=== PATIENT | female | born 1940 | race Caucasian/White ===

== ENCOUNTER → 2016-10-20 | Outpatient (CLI) | payer MEDICARE ==
[~2016-10-20] MED LIST: ALPR-475 PO; ALPR1TAB6 PO; ARFO15VI INH; ASCO500C2 PO; ASPI-515 PO; ASPI-621 PO; BACL-19 PO; CALC1TAB62 PO; CHOL500015 PO; FLUT12AE INH; GABA-827 PO; ISOS5TAB2 PO; LEVA15HF2 INH; MAGN400O4 PO; METO25TA35 PO; MULT-185 PO; PANT40TA5 PO; PARO10TA3 PO; PARO40TA3 PO; POLY17PO5 PO; SENN1TAB67 PO; SIMV40TA3 PO; SULF1TAB24 PO; TIOT18CA INH
== END ==
LOC: STAR 09:33
PROVIDERS: ATTEND Internal Medicine Gastroenterology
DX: Z02.9 Encounter for administrative examinations, unspecified (principal)

== ENCOUNTER 2016-12-04 05:43 | Day surgery (SDC) | payer MEDICARE ==
[~2016-12-04] VITALS: Ht 149.9 cm; Wt 55.0 kg
[2016-12-04] MEDS ORDERED: LACTATED RINGERS 1,000 ML IV SCH (06:08)
[2016-12-04] MEDS ORDERED: MIDAZOLAM 1 MG/ML, 2ML ONE (07:40)
[2016-12-04] MEDS ORDERED: PIPERACILLIN/TAZO/PMX 3.375GM 50 ML ONE (07:41)
[2016-12-04] MEDS ORDERED: FENTANYL PF 100 MCG/2ML ONE (07:41)
[2016-12-04] MEDS ORDERED: ONDANSETRON 2MG/ML, 2ML IVPush PRN (08:30)
[2016-12-04] MEDS ORDERED: LABETALOL 5MG/ML, 20ML IV PRN (08:30)
[2016-12-04] MEDS ORDERED: HYDROcodone/APAP 7.5-325MG/15ML UDC PO PRN (08:30)
[2016-12-04] MEDS ORDERED: METOPROLOL 1 MG/ML, 5ML IV PRN (08:30)
[2016-12-04] MEDS ORDERED: ACETAMINOPHEN 325 MG TABLET PO PRN (08:30)
[2016-12-04] MEDS ORDERED: OXYcodone 5 MG/5 ML ORAL.SOL UDC PO PRN (08:30)
[2016-12-04] MEDS ORDERED: FENTANYL PF 100 MCG/2ML IV PRN (08:30)
[2016-12-04] MEDS ORDERED: OMNIPAQUE 350 MG/ML, 50 ML BOTTLE ONE (09:28)
[2016-12-04] MEDS ORDERED: PROPOFOL 10 MG/ML, 20ML ONE (15:53)
[2016-12-04] MEDS ORDERED: ROCURONIUM 10 MG/ML ONE (15:53)
== END 2016-12-04 10:45 | disposition home or self-care (01) ==
LOC: OUT 05:43
PROVIDERS: ATTEND Internal Medicine Gastroenterology
DX: K82.0 Obstruction of gallbladder (principal); Z96.89 Presence of other specified functional implants; I25.10 Atherosclerotic heart disease of native coronary artery without angina pectoris; I11.0 Hypertensive heart disease with heart failure; I50.32 Chronic diastolic (congestive) heart failure; J44.9 Chronic obstructive pulmonary disease, unspecified; J96.10 Chronic respiratory failure, unspecified whether with hypoxia or hypercapnia; K76.0 Fatty (change of) liver, not elsewhere classified; E78.5 Hyperlipidemia, unspecified; I25.2 Old myocardial infarction; F32.9 Major depressive disorder, single episode, unspecified; Z95.1 Presence of aortocoronary bypass graft; Z90.710 Acquired absence of both cervix and uterus; Z88.1 Allergy status to other antibiotic agents; Z90.49 Acquired absence of other specified parts of digestive tract
CPT/HCPCS: 43275; 43277; 74328; C1769; J2543; J2704; J3010; J7120; Q9967; J2250

== ENCOUNTER 2016-12-15 10:05 | Inpatient (IN) | payer MEDICARE ==
[~2016-12-15] VITALS: Ht 149.9 cm; Wt 68.9 kg
[2016-12-15] MEDS ORDERED: methylPREDNISolone SOD SUCC 125 MG/2 ML IVPush ONE (10:27)
[2016-12-15] MEDS ORDERED: PREGABALIN 25 MG CAPSULE PO ONE (10:30)
[2016-12-15 11:22] LABS: ASPARTATE AMINO TRANSFERASE 101 U/L (15-37); BLOOD UREA NITROGEN 16 mg/dL (7-18)
[2016-12-15 11:28] LABS: IS PT STATUS REG ER OR PRE ER? YES
[2016-12-15 12:12] LABS: PATH.CAST-FLAG NOT PRESENT; SPERM-FLAG NOT PRESENT; SRC-FLAG NOT PRESENT; XTAL-FLAG NOT PRESENT; YLC-FLAG NOT PRESENT
[2016-12-15] MEDS ORDERED: ONDANSETRON ODT 4 MG PO PRN (16:00)
[2016-12-15] MEDS ORDERED: ONDANSETRON 2MG/ML, 2ML IVPush PRN (16:00)
[2016-12-15 16:42] VITALS: BP 129/69
[2016-12-15] MEDS: SODIUM CHLORIDE 0.9% 1,000 ML IV SCH (18:32)
[2016-12-15] MEDS: HEPARIN 5,000 UNITS/ML, 1ML SQ SCH (18:33)
[2016-12-15] MEDS: BACLOFEN 10 MG TABLET PO SCH (20:28)
[2016-12-15] MEDS: GABAPENTIN 400 MG CAPSULE PO SCH (20:28)
[2016-12-15] MEDS ORDERED: PANTOPROZOLE 40MG TABLET PO SCH (21:00)
[2016-12-15] MEDS: ALPRazolam 1MG TABLET PO PRN (22:38)
[2016-12-15] MEDS ORDERED: IPRATROPIUM 0.5 MG/2.5 ML INHA ONE (22:59)
[2016-12-15] MEDS: IPRATROPIUM 0.5 MG/2.5 ML INHA HHN SCH (23:00)
[2016-12-16] MEDS: HEPARIN 5,000 UNITS/ML, 1ML SQ SCH ×3 (03:14→19:00)
[2016-12-16 04:14] VITALS: BP 108/71
[2016-12-16 05:19] LABS: ASPARTATE AMINO TRANSFERASE 83 U/L (15-37); BLOOD UREA NITROGEN 12 mg/dL (7-18)
[2016-12-16 06:54] VITALS: BP 118/73
[2016-12-16] MEDS ORDERED: IPRATROPIUM 0.5 MG/2.5 ML INHA ONE (07:03)
[2016-12-16] MEDS: IPRATROPIUM 0.5 MG/2.5 ML INHA HHN SCH (07:31)
[2016-12-16] MEDS: SODIUM CHLORIDE 0.9% 1,000 ML IV SCH ×2 (08:32→22:30)
[2016-12-16] MEDS: BACLOFEN 10 MG TABLET PO SCH ×2 (08:35→20:46)
[2016-12-16] MEDS: ASPIRIN 81 MG TABLET EC PO SCH (08:35)
[2016-12-16] MEDS: ASCORBIC ACID 500 MG TABLET PO SCH (08:36)
[2016-12-16] MEDS: PAROXETINE 20 MG TABLET PO SCH (08:36)
[2016-12-16] MEDS: GABAPENTIN 400 MG CAPSULE PO SCH ×2 (08:36→20:46)
[2016-12-16] MEDS: CHOLECALCIFEROL 1,000 UNIT TABLET PO SCH (08:36)
[2016-12-16] MEDS ORDERED: IPRATROPIUM 0.5 MG/2.5 ML INHA NPPB PRN (09:00)
[2016-12-16] MEDS ORDERED: LEVALBUTEROL INH SCH (09:00)
[2016-12-16] MEDS ORDERED: FLUTICASONE FUROATE 100MCG/INH INH SCH (09:00)
[2016-12-16] MEDS: PANTOPROZOLE 40MG TABLET PO SCH (09:03)
[2016-12-16] MEDS: AMPICILLIN/SULBACTAM 3 GM in SODIUM CHLORIDE 0.9% 100 ML IV SCH ×2 (14:25→20:20)
[2016-12-16 20:00] VITALS: BP 124/71
[2016-12-16] MEDS ORDERED: METOPROLOL TARTRATE 25 MG TABLET PO SCH (20:00)
[2016-12-16] MEDS: FLUTICASONE FUROATE 100MCG/INH INH SCH (20:46)
[2016-12-16] MEDS ORDERED: SIMVASTATIN 40 MG TABLET PO SCH (21:00)
[2016-12-16] MEDS ORDERED: SODIUM CHLORIDE 0.9%, 500ML IVBOLUS ONE (21:00)
[2016-12-16 21:57] VITALS: BP 127/77
[2016-12-16] MEDS: ALPRazolam 1MG TABLET PO PRN (23:35)
[2016-12-16 23:48] VITALS: BP 110/59
[2016-12-17 02:25] VITALS: BP 97/59
[2016-12-17] MEDS: HEPARIN 5,000 UNITS/ML, 1ML SQ SCH ×3 (02:42→19:15)
[2016-12-17] MEDS: AMPICILLIN/SULBACTAM 3 GM in SODIUM CHLORIDE 0.9% 100 ML IV SCH ×2 (02:43→09:05)
[2016-12-17 05:34] LABS: ASPARTATE AMINO TRANSFERASE 77 U/L (15-37); BLOOD UREA NITROGEN 8 mg/dL (7-18)
[2016-12-17] MEDS: METOPROLOL TARTRATE 25 MG TABLET PO SCH ×2 (05:59→18:00)
[2016-12-17 08:55] VITALS: BP 112/70
[2016-12-17] MEDS ORDERED: LEVALBUTEROL INH PRN (09:00)
[2016-12-17] MEDS: IPRATROPIUM 0.5 MG/2.5 ML INHA NPPB SCH (09:00)
[2016-12-17] MEDS: FLUTICASONE FUROATE 100MCG/INH INH SCH ×3 (09:05→20:37)
[2016-12-17] MEDS: ASPIRIN 81 MG TABLET EC PO SCH (09:06)
[2016-12-17] MEDS: ASCORBIC ACID 500 MG TABLET PO SCH (09:06)
[2016-12-17] MEDS: GABAPENTIN 400 MG CAPSULE PO SCH ×2 (09:06→20:36)
[2016-12-17] MEDS: CHOLECALCIFEROL 1,000 UNIT TABLET PO SCH (09:06)
[2016-12-17] MEDS: PAROXETINE 20 MG TABLET PO SCH (09:06)
[2016-12-17] MEDS: PANTOPROZOLE 40MG TABLET PO SCH (09:06)
[2016-12-17] MEDS: BACLOFEN 10 MG TABLET PO SCH ×2 (09:06→20:36)
[2016-12-17] MEDS: PSYLLIUM PACKET PO PRN (09:11)
[2016-12-17 13:24] VITALS: BP 119/77
[2016-12-17] MEDS: SODIUM CHLORIDE 0.9% 1,000 ML IV SCH ×2 (13:49→15:42)
[2016-12-17] MEDS ORDERED: VANCOMYCIN PER PHARMACY MC PRN (14:00)
[2016-12-17] MEDS: MEROPENEM 1 GM in SODIUM CHLORIDE 0.9% 100 ML IV SCH ×2 (14:27→22:30)
[2016-12-17] MEDS ORDERED: PHARMACOKINETIC CONSULTATION MC ONE (14:30)
[2016-12-17] MEDS ORDERED: MAGNESIUM SULFATE PMX 2GM/50ML 50 ML IV ONE (14:30)
[2016-12-17] MEDS ORDERED: PHARMACOKINETIC MONITORING MC PRN (14:30)
[2016-12-17] MEDS ORDERED: BISACODYL 10 MG SUPP PR PRN (15:00)
[2016-12-17] MEDS: VANCOMYCIN 1,100 MG in SODIUM CHLORIDE 0.9% 250 ML IV SCH (15:28)
[2016-12-17 17:58] VITALS: BP 99/58
[2016-12-17] MEDS: POTASSIUM CHLORIDE 20 MEQ TAB.ER.PRT PO SCH (18:00)
[2016-12-17 18:30] VITALS: BP 99/58
[2016-12-17] MEDS: CALCIUM CARBONATE 500 MG TAB.CHEW PO PRN (20:47)
[2016-12-18 00:52] VITALS: BP 104/60
[2016-12-18] MEDS: HEPARIN 5,000 UNITS/ML, 1ML SQ SCH ×3 (03:27→18:33)
[2016-12-18] MEDS: SODIUM CHLORIDE 0.9% 1,000 ML IV SCH ×3 (03:28→22:33)
[2016-12-18 05:22] LABS: BLOOD UREA NITROGEN 7 mg/dL (7-18)
[2016-12-18 05:33] LABS: ASPARTATE AMINO TRANSFERASE 77 U/L (15-37)
[2016-12-18] MEDS: MEROPENEM 1 GM in SODIUM CHLORIDE 0.9% 100 ML IV SCH ×3 (06:16→22:30)
[2016-12-18] MEDS: METOPROLOL TARTRATE 25 MG TABLET PO SCH ×2 (06:16→17:29)
[2016-12-18 07:47] VITALS: BP 112/71
[2016-12-18] MEDS: IPRATROPIUM 0.5 MG/2.5 ML INHA NPPB SCH (08:07)
[2016-12-18 08:21] LABS: HEPATITIS C VIRUS ANTIBODY Nonreactive (Nonreactive)
[2016-12-18] MEDS: FLUTICASONE FUROATE 100MCG/INH INH SCH ×2 (09:00→21:00)
[2016-12-18] MEDS: ASPIRIN 81 MG TABLET EC PO SCH (09:21)
[2016-12-18] MEDS: ASCORBIC ACID 500 MG TABLET PO SCH (09:21)
[2016-12-18] MEDS: MAGNESIUM OXIDE 400 MG TABLET PO SCH (09:21)
[2016-12-18] MEDS: BACLOFEN 10 MG TABLET PO SCH ×2 (09:21→22:03)
[2016-12-18] MEDS: PAROXETINE 20 MG TABLET PO SCH (09:21)
[2016-12-18] MEDS: PANTOPROZOLE 40MG TABLET PO SCH (09:21)
[2016-12-18] MEDS: GABAPENTIN 400 MG CAPSULE PO SCH ×2 (09:21→22:03)
[2016-12-18] MEDS: CHOLECALCIFEROL 1,000 UNIT TABLET PO SCH (09:21)
[2016-12-18] MEDS: POTASSIUM CHLORIDE 20 MEQ TAB.ER.PRT PO SCH ×2 (09:22→11:47)
[2016-12-18] MEDS: POLYETHYLENE GLYCOL 17 GM PACKET NG SCH (09:22)
[2016-12-18 14:38] VITALS: BP 112/68
[2016-12-18] MEDS: VANCOMYCIN 1,100 MG in SODIUM CHLORIDE 0.9% 250 ML IV SCH (15:26)
[2016-12-18] MEDS: POTASSIUM ACID PHOSPHATE 500 MG TABLET.SOL PO SCH ×2 (15:29→22:02)
[2016-12-18 17:30] VITALS: BP 111/69
[2016-12-18 19:32] VITALS: BP 120/74
[2016-12-19] MEDS: POTASSIUM ACID PHOSPHATE 500 MG TABLET.SOL PO SCH ×2 (02:17→07:27)
[2016-12-19 02:22] VITALS: BP 156/89
[2016-12-19] MEDS: HEPARIN 5,000 UNITS/ML, 1ML SQ SCH (03:00)
[2016-12-19] MEDS ORDERED: [UNRECOGNIZED DRUG - REMARK] MC PRN (04:00)
[2016-12-19 05:54] LABS: ASPARTATE AMINO TRANSFERASE 106 U/L (15-37); BLOOD UREA NITROGEN 8 mg/dL (7-18)
[2016-12-19] MEDS: METOPROLOL TARTRATE 25 MG TABLET PO SCH ×3 (06:00→18:33)
[2016-12-19] MEDS: MEROPENEM 1 GM in SODIUM CHLORIDE 0.9% 100 ML IV SCH ×3 (06:06→21:21)
[2016-12-19] MEDS: POLYETHYLENE GLYCOL 17 GM PACKET NG SCH (07:27)
[2016-12-19] MEDS: ASPIRIN 81 MG TABLET EC PO SCH (07:27)
[2016-12-19] MEDS: ASCORBIC ACID 500 MG TABLET PO SCH (07:28)
[2016-12-19] MEDS: GABAPENTIN 400 MG CAPSULE PO SCH ×2 (07:28→21:19)
[2016-12-19] MEDS: BACLOFEN 10 MG TABLET PO SCH ×2 (07:28→21:19)
[2016-12-19] MEDS: MAGNESIUM OXIDE 400 MG TABLET PO SCH (07:28)
[2016-12-19] MEDS: PAROXETINE 20 MG TABLET PO SCH (07:28)
[2016-12-19] MEDS: PANTOPROZOLE 40MG TABLET PO SCH (07:28)
[2016-12-19] MEDS: FLUTICASONE FUROATE 100MCG/INH INH SCH ×2 (07:29→21:00)
[2016-12-19] MEDS: CHOLECALCIFEROL 1,000 UNIT TABLET PO SCH (07:29)
[2016-12-19 07:36] VITALS: BP 107/69
[2016-12-19] MEDS: SODIUM CHLORIDE 0.9% 1,000 ML IV SCH ×2 (08:00→12:00)
[2016-12-19] MEDS: IPRATROPIUM 0.5 MG/2.5 ML INHA NPPB SCH (09:58)
[2016-12-19] MEDS ORDERED: MAGNESIUM SULFATE PMX 2GM/50ML 50 ML IV ONE (11:00)
[2016-12-19] MEDS ORDERED: SUCCINYLCHOLINE 20 MG/ML, 10ML ONE (12:32)
[2016-12-19] MEDS ORDERED: PROPOFOL 10 MG/ML, 20ML ONE (12:32)
[2016-12-19] MEDS ORDERED: ONDANSETRON 2MG/ML, 2ML ONE (12:32)
[2016-12-19] MEDS ORDERED: GLUCAGON 1 MG ONE (13:01)
[2016-12-19] MEDS ORDERED: FENTANYL PF 100 MCG/2ML IV PRN (14:00)
[2016-12-19] MEDS ORDERED: HYDROmorphone 1 MG/ML, 1ML IV PRN (14:00)
[2016-12-19] MEDS ORDERED: OXYcodone 5 MG/5 ML ORAL.SOL UDC PO PRN (14:00)
[2016-12-19] MEDS ORDERED: HALOPERIDOL 5 MG/ML IV ONE (14:00)
[2016-12-19 14:50] VITALS: BP 109/72
[2016-12-19] MEDS: VANCOMYCIN 1,100 MG in SODIUM CHLORIDE 0.9% 250 ML IV SCH (15:55)
[2016-12-19 18:45] VITALS: BP 100/65
[2016-12-19 23:44] VITALS: BP 109/69
[2016-12-20 03:43] VITALS: BP 113/72
[2016-12-20] MEDS: SODIUM CHLORIDE 0.9% 1,000 ML IV SCH ×3 (03:57→22:33)
[2016-12-20 05:35] LABS: BLOOD UREA NITROGEN 6 mg/dL (7-18)
[2016-12-20 05:39] LABS: ASPARTATE AMINO TRANSFERASE 125 U/L (15-37)
[2016-12-20] MEDS: METOPROLOL TARTRATE 25 MG TABLET PO SCH ×2 (06:00→17:53)
[2016-12-20] MEDS: MEROPENEM 1 GM in SODIUM CHLORIDE 0.9% 100 ML IV SCH ×3 (06:27→22:30)
[2016-12-20] MEDS: HEPARIN 5,000 UNITS/ML, 1ML SQ SCH ×3 (06:27→22:31)
[2016-12-20 07:57] VITALS: BP 115/70
[2016-12-20] MEDS: GABAPENTIN 400 MG CAPSULE PO SCH ×3 (09:00→20:33)
[2016-12-20] MEDS: BACLOFEN 10 MG TABLET PO SCH ×2 (09:00→20:33)
[2016-12-20] MEDS: ASPIRIN 81 MG TABLET EC PO SCH (09:00)
[2016-12-20] MEDS: PAROXETINE 20 MG TABLET PO SCH ×2 (09:00→13:33)
[2016-12-20] MEDS: CHOLECALCIFEROL 1,000 UNIT TABLET PO SCH (09:00)
[2016-12-20] MEDS: FLUTICASONE FUROATE 100MCG/INH INH SCH ×2 (09:00→21:00)
[2016-12-20] MEDS: PANTOPROZOLE 40MG TABLET PO SCH (09:00)
[2016-12-20] MEDS: ASCORBIC ACID 500 MG TABLET PO SCH (09:00)
[2016-12-20] MEDS: MAGNESIUM OXIDE 400 MG TABLET PO SCH (09:00)
[2016-12-20] MEDS: IPRATROPIUM 0.5 MG/2.5 ML INHA NPPB SCH (09:00)
[2016-12-20] MEDS: POLYETHYLENE GLYCOL 17 GM PACKET NG SCH (09:00)
[2016-12-20 12:00] VITALS: BP 111/73
[2016-12-20] MEDS: VANCOMYCIN 1,100 MG in SODIUM CHLORIDE 0.9% 250 ML IV SCH (15:00)
[2016-12-20 16:45] VITALS: BP 126/79
[2016-12-20 18:57] VITALS: BP 129/76
[2016-12-21 00:39] VITALS: BP 109/71
[2016-12-21 05:38] LABS: ASPARTATE AMINO TRANSFERASE 142 U/L (15-37); BLOOD UREA NITROGEN 5 mg/dL (7-18)
[2016-12-21] MEDS: METOPROLOL TARTRATE 25 MG TABLET PO SCH ×2 (06:28→18:37)
[2016-12-21] MEDS: HEPARIN 5,000 UNITS/ML, 1ML SQ SCH ×3 (06:28→22:18)
[2016-12-21] MEDS: MEROPENEM 1 GM in SODIUM CHLORIDE 0.9% 100 ML IV SCH ×3 (06:28→22:17)
[2016-12-21] MEDS: SODIUM CHLORIDE 0.9% 1,000 ML IV SCH ×3 (06:30→22:22)
[2016-12-21 07:37] VITALS: BP 120/75
[2016-12-21] MEDS: FLUTICASONE FUROATE 100MCG/INH INH SCH ×2 (08:35→22:18)
[2016-12-21] MEDS: ASPIRIN 81 MG TABLET EC PO SCH (08:36)
[2016-12-21] MEDS: MAGNESIUM OXIDE 400 MG TABLET PO SCH (08:36)
[2016-12-21] MEDS: ASCORBIC ACID 500 MG TABLET PO SCH (08:36)
[2016-12-21] MEDS: PAROXETINE 20 MG TABLET PO SCH (08:36)
[2016-12-21] MEDS: BACLOFEN 10 MG TABLET PO SCH ×2 (08:36→22:18)
[2016-12-21] MEDS: CHOLECALCIFEROL 1,000 UNIT TABLET PO SCH (08:36)
[2016-12-21] MEDS: POLYETHYLENE GLYCOL 17 GM PACKET NG SCH (08:36)
[2016-12-21] MEDS: PANTOPROZOLE 40MG TABLET PO SCH (08:36)
[2016-12-21] MEDS: GABAPENTIN 400 MG CAPSULE PO SCH ×2 (08:36→22:18)
[2016-12-21] MEDS: CALCIUM CARBONATE 500 MG TAB.CHEW PO PRN (10:15)
[2016-12-21 12:20] VITALS: BP 121/81
[2016-12-21] MEDS ORDERED: OMNIPAQUE 350 MG/ML, 100ML BOTTLE ONE (13:28)
[2016-12-21 19:47] VITALS: BP 126/72
[2016-12-22 02:45] VITALS: BP 142/84
[2016-12-22] MEDS: METOPROLOL TARTRATE 25 MG TABLET PO SCH ×2 (06:32→17:45)
[2016-12-22] MEDS: MEROPENEM 1 GM in SODIUM CHLORIDE 0.9% 100 ML IV SCH ×3 (06:32→22:23)
[2016-12-22] MEDS: HEPARIN 5,000 UNITS/ML, 1ML SQ SCH ×3 (06:32→22:23)
[2016-12-22 08:24] VITALS: BP 129/78
[2016-12-22] MEDS: POLYETHYLENE GLYCOL 17 GM PACKET NG SCH (09:14)
[2016-12-22] MEDS: CHOLECALCIFEROL 1,000 UNIT TABLET PO SCH (09:15)
[2016-12-22] MEDS: ASPIRIN 81 MG TABLET EC PO SCH (09:15)
[2016-12-22] MEDS: PAROXETINE 20 MG TABLET PO SCH (09:15)
[2016-12-22] MEDS: ASCORBIC ACID 500 MG TABLET PO SCH (09:15)
[2016-12-22] MEDS: SODIUM CHLORIDE 0.9% 1,000 ML IV SCH ×3 (09:15→21:18)
[2016-12-22] MEDS: PANTOPROZOLE 40MG TABLET PO SCH (09:15)
[2016-12-22] MEDS: FLUTICASONE FUROATE 100MCG/INH INH SCH ×2 (09:15→21:17)
[2016-12-22] MEDS: BACLOFEN 10 MG TABLET PO SCH ×2 (09:15→21:18)
[2016-12-22] MEDS: GABAPENTIN 400 MG CAPSULE PO SCH ×2 (09:15→21:18)
[2016-12-22] MEDS: MAGNESIUM OXIDE 400 MG TABLET PO SCH (09:15)
[2016-12-22 12:16] VITALS: BP 128/82
[2016-12-22 16:06] LABS: ANA SCREEN NEGATIVE (Negative)
[2016-12-22 19:45] VITALS: BP 123/76
[2016-12-22] MEDS: PSYLLIUM PACKET PO PRN ×2 (21:27→22:23)
[2016-12-23] MEDS: SODIUM CHLORIDE 0.9% 1,000 ML IV SCH ×2 (03:00→11:43)
[2016-12-23 04:00] VITALS: BP 128/80
[2016-12-23 06:18] LABS: BLOOD UREA NITROGEN 5 mg/dL (7-18)
[2016-12-23 06:28] LABS: ASPARTATE AMINO TRANSFERASE 143 U/L (15-37)
[2016-12-23] MEDS: MEROPENEM 1 GM in SODIUM CHLORIDE 0.9% 100 ML IV SCH ×3 (06:28→22:58)
[2016-12-23] MEDS: HEPARIN 5,000 UNITS/ML, 1ML SQ SCH ×3 (06:28→22:58)
[2016-12-23] MEDS: METOPROLOL TARTRATE 25 MG TABLET PO SCH ×2 (06:28→17:56)
[2016-12-23 07:15] VITALS: BP 131/79
[2016-12-23] MEDS: MAGNESIUM OXIDE 400 MG TABLET PO SCH (08:23)
[2016-12-23] MEDS: GABAPENTIN 400 MG CAPSULE PO SCH ×2 (08:23→21:23)
[2016-12-23] MEDS: BACLOFEN 10 MG TABLET PO SCH ×2 (08:23→21:24)
[2016-12-23] MEDS: ASCORBIC ACID 500 MG TABLET PO SCH (08:24)
[2016-12-23] MEDS: POLYETHYLENE GLYCOL 17 GM PACKET NG SCH (08:24)
[2016-12-23] MEDS: PAROXETINE 20 MG TABLET PO SCH (08:24)
[2016-12-23] MEDS: ASPIRIN 81 MG TABLET EC PO SCH (08:24)
[2016-12-23] MEDS: CHOLECALCIFEROL 1,000 UNIT TABLET PO SCH (08:24)
[2016-12-23] MEDS: PANTOPROZOLE 40MG TABLET PO SCH (08:24)
[2016-12-23] MEDS: FLUTICASONE FUROATE 100MCG/INH INH SCH ×2 (08:38→21:23)
[2016-12-23 12:43] VITALS: BP 148/79
[2016-12-23] MEDS: URSODIOL 300 MG CAPSULE PO SCH (17:56)
[2016-12-23 20:18] VITALS: BP 127/80
[2016-12-24 03:05] VITALS: BP 118/70
[2016-12-24 06:01] LABS: ASPARTATE AMINO TRANSFERASE 136 U/L (15-37); BLOOD UREA NITROGEN 6 mg/dL (7-18)
[2016-12-24] MEDS: MEROPENEM 1 GM in SODIUM CHLORIDE 0.9% 100 ML IV SCH ×3 (06:43→22:37)
[2016-12-24] MEDS: HEPARIN 5,000 UNITS/ML, 1ML SQ SCH ×3 (06:43→22:37)
[2016-12-24] MEDS: METOPROLOL TARTRATE 25 MG TABLET PO SCH ×2 (06:44→17:56)
[2016-12-24] MEDS: ASPIRIN 81 MG TABLET EC PO SCH (08:22)
[2016-12-24] MEDS: MAGNESIUM OXIDE 400 MG TABLET PO SCH (08:22)
[2016-12-24] MEDS: URSODIOL 300 MG CAPSULE PO SCH ×3 (08:22→17:54)
[2016-12-24] MEDS: BACLOFEN 10 MG TABLET PO SCH ×2 (08:22→21:36)
[2016-12-24] MEDS: CHOLECALCIFEROL 1,000 UNIT TABLET PO SCH (08:23)
[2016-12-24] MEDS: POLYETHYLENE GLYCOL 17 GM PACKET NG SCH (08:23)
[2016-12-24] MEDS: PANTOPROZOLE 40MG TABLET PO SCH (08:23)
[2016-12-24] MEDS: PAROXETINE 20 MG TABLET PO SCH (08:23)
[2016-12-24] MEDS: GABAPENTIN 400 MG CAPSULE PO SCH ×2 (08:23→21:36)
[2016-12-24] MEDS: FLUTICASONE FUROATE 100MCG/INH INH SCH ×2 (08:23→21:00)
[2016-12-24] MEDS: ASCORBIC ACID 500 MG TABLET PO SCH (08:23)
[2016-12-24 08:38] VITALS: BP 117/76
[2016-12-24 13:26] VITALS: BP 120/65
[2016-12-24] MEDS ORDERED: VISIPAQUE 270 MG/ML, 50ML BOTTLE ONE (14:00)
[2016-12-24 19:14] VITALS: BP 128/77
[2016-12-25 01:16] VITALS: BP 120/71
[2016-12-25] MEDS: METOPROLOL TARTRATE 25 MG TABLET PO SCH (06:00)
[2016-12-25] MEDS: HEPARIN 5,000 UNITS/ML, 1ML SQ SCH ×2 (06:00→15:02)
[2016-12-25] MEDS: MEROPENEM 1 GM in SODIUM CHLORIDE 0.9% 100 ML IV SCH ×2 (06:09→15:02)
[2016-12-25 06:26] VITALS: BP 118/68
[2016-12-25 06:57] LABS: BLOOD UREA NITROGEN 7 mg/dL (7-18)
[2016-12-25 07:06] LABS: ASPARTATE AMINO TRANSFERASE 118 U/L (15-37)
[2016-12-25] MEDS: MAGNESIUM OXIDE 400 MG TABLET PO SCH (08:33)
[2016-12-25] MEDS: PANTOPROZOLE 40MG TABLET PO SCH (08:33)
[2016-12-25] MEDS: GABAPENTIN 400 MG CAPSULE PO SCH (08:33)
[2016-12-25] MEDS: ASCORBIC ACID 500 MG TABLET PO SCH (08:33)
[2016-12-25] MEDS: URSODIOL 300 MG CAPSULE PO SCH ×3 (08:34→16:56)
[2016-12-25] MEDS: ASPIRIN 81 MG TABLET EC PO SCH (08:34)
[2016-12-25] MEDS: PAROXETINE 20 MG TABLET PO SCH (08:34)
[2016-12-25] MEDS: CHOLECALCIFEROL 1,000 UNIT TABLET PO SCH (08:34)
[2016-12-25] MEDS: BACLOFEN 10 MG TABLET PO SCH (08:34)
[2016-12-25] MEDS: FLUTICASONE FUROATE 100MCG/INH INH SCH (09:00)
[2016-12-25] MEDS: POLYETHYLENE GLYCOL 17 GM PACKET NG SCH (09:00)
[2016-12-25] MEDS ORDERED: FLUMAZENIL 0.1 MG/1 ML, 5ML ONE (09:26)
[2016-12-25] MEDS ORDERED: MIDAZOLAM 1 MG/ML, 5ML ONE (09:26)
[2016-12-25] MEDS ORDERED: NALOXONE 1 MG/ML, 2ML ONE (09:26)
[2016-12-25] MEDS ORDERED: FENTANYL PF 100 MCG/2ML ONE (09:26)
[2016-12-25] MEDS: NEUTRA PHOS K 250 MG TABLET PO SCH ×2 (12:05→16:56)
[2016-12-25] MEDS ORDERED: MAGN400T26 PO (14:51)
[2016-12-25] MEDS ORDERED: PHOS250T3 PO (14:51)
[2016-12-25] MEDS ORDERED: METO25TA35 PO (14:51)
[2016-12-25] MEDS ORDERED: PSYL3.4P8 PO (14:51)
[2016-12-25] MEDS ORDERED: URSO300C12 PO (14:51)
[2016-12-25] MEDS ORDERED: TRAM50TA2 PO (14:51)
[2016-12-25] MEDS ORDERED: MERO1VIA15 IV (14:59)
== END 2016-12-25 17:05 | DRG 871 ==
LOC: ED 11:31 → EDIP 14:16 → 4NOR 16:27
PROVIDERS: ADMIT Hospitalist; ATTEND Hospitalist
PROC: 0FJB8ZZ Inspection of Hepatobiliary Duct, Via Natural or Artificial Opening Endoscopic (ICD-10-PCS; 2016-12-19)
PROC: 0FB98ZX Excision of Common Bile Duct, Via Natural or Artificial Opening Endoscopic, Diagnostic (ICD-10-PCS; 2016-12-19)
PROC: 0F798DZ Dilation of Common Bile Duct with Intraluminal Device, Via Natural or Artificial Opening Endoscopic (ICD-10-PCS; 2016-12-19)
PROC: BF131ZZ Fluoroscopy of Gallbladder and Bile Ducts using Low Osmolar Contrast (ICD-10-PCS; 2016-12-19)
PROC: 02HV33Z Insertion of Infusion Device into Superior Vena Cava, Percutaneous Approach (ICD-10-PCS; 2016-12-24)
PROC: B5181ZA Fluoroscopy of Superior Vena Cava using Low Osmolar Contrast, Guidance (ICD-10-PCS; 2016-12-24)
PROC: 0FB13ZX Excision of Right Lobe Liver, Percutaneous Approach, Diagnostic (ICD-10-PCS; principal; 2016-12-25)
DX: A41.52 Sepsis due to Pseudomonas (principal); E43 Unspecified severe protein-calorie malnutrition; K83.1 Obstruction of bile duct; I50.32 Chronic diastolic (congestive) heart failure; J96.11 Chronic respiratory failure with hypoxia; K83.0 Cholangitis; S82.401A Unspecified fracture of shaft of right fibula, initial encounter for closed fracture; B96.1 Klebsiella pneumoniae [K. pneumoniae] as the cause of diseases classified elsewhere; D63.8 Anemia in other chronic diseases classified elsewhere; E78.5 Hyperlipidemia, unspecified; E83.39 Other disorders of phosphorus metabolism; E83.42 Hypomagnesemia; E87.6 Hypokalemia; F32.9 Major depressive disorder, single episode, unspecified; F41.9 Anxiety disorder, unspecified; G62.9 Polyneuropathy, unspecified; G89.29 Other chronic pain; I11.0 Hypertensive heart disease with heart failure; I25.10 Atherosclerotic heart disease of native coronary artery without angina pectoris; J44.9 Chronic obstructive pulmonary disease, unspecified; K21.9 Gastro-esophageal reflux disease without esophagitis; K59.00 Constipation, unspecified; R13.10 Dysphagia, unspecified; Z96.641 Presence of right artificial hip joint; S82.309A Unspecified fracture of lower end of unspecified tibia, initial encounter for closed fracture; W18.39XA Other fall on same level, initial encounter; Z77.22 Contact with and (suspected) exposure to environmental tobacco smoke (acute) (chronic); I25.2 Old myocardial infarction; Z79.51 Long term (current) use of inhaled steroids; Z79.82 Long term (current) use of aspirin; Z79.899 Other long term (current) drug therapy; Z80.9 Family history of malignant neoplasm, unspecified; Z86.711 Personal history of pulmonary embolism; Z88.1 Allergy status to other antibiotic agents; Z90.49 Acquired absence of other specified parts of digestive tract; Z95.1 Presence of aortocoronary bypass graft; Z95.5 Presence of coronary angioplasty implant and graft; Z99.81 Dependence on supplemental oxygen; Z90.710 Acquired absence of both cervix and uterus; Y93.89 Activity, other specified; Y92.128 Other place in nursing home as the place of occurrence of the external cause; Y99.8 Other external cause status
CPT/HCPCS: 36415; 36569; 47000; 70450; 71010; 74178; 74181; 74328; 76700; 76937; 77001; 77012; 80053; 80074; 80202; 81001; 82140; 82247; 82248; 82378; 82550; 82787; 83516; 83690; 83735; 84100; 84443; 84484; 85025; 85610; 85651; 85730; 86038; 86140; 86301; 87040; 87077; 87086; 87186; 88104; 88112; 88304; 88307; 88313; 88342; 93005; 94640; 99156; 99157; 99285; J0295; J1644; J2185; J2250; J2405; J2704; J3010; J3370; J7644; Q9966; Q9967; C1751; C1769; C1894; C2625; G0461; J0330; J1610; J2310; J3475; J7030; J7040; J7050

== ENCOUNTER → 2017-03-09 | Outpatient (CLI) | payer MEDICARE ==
[~2017-03-09] MED LIST changes: -LEVA15HF2 INH; +LEVA15HF4 INH; -MAGN400O4 PO; +MAGN400O7 PO; +MAGN400T26 PO; +MERO1VIA15 IV; +PHOS250T3 PO; +PSYL3.4P8 PO; +TRAM50TA2 PO; +URSO300C12 PO
== END | disposition home or self-care (01) ==
LOC: CFH 10:59
PROVIDERS: ATTEND Family Medicine
DX: Z13.820 Encounter for screening for osteoporosis (principal); M81.0 Age-related osteoporosis without current pathological fracture; M06.9 Rheumatoid arthritis, unspecified; N95.9 Unspecified menopausal and perimenopausal disorder; S82.4 Fracture of shaft of fibula; X58.XXXS Exposure to other specified factors, sequela
CPT/HCPCS: 77080

== ENCOUNTER 2017-05-20 15:38 | Inpatient (IN) | payer MEDICARE ==
[~2017-05-20] VITALS: Ht 149.9 cm; Wt 65.0 kg
[2017-05-20] MEDS ORDERED: SODIUM CHLORIDE 0.9% 1,000 ML IV ONE (16:12)
[2017-05-20 16:16] LABS: HEMATOCRIT 36.3 % (34.6-47.8); HEMOGLOBIN 12.2 g/dL (11.7-16.4); WHITE BLOOD COUNT 7.7 x10^3/uL (3.4-10)
[2017-05-20 16:25] LABS: ASPARTATE AMINO TRANSFERASE 99 U/L (15-37); BLOOD UREA NITROGEN 11 mg/dL (7-18)
[2017-05-20] MEDS ORDERED: CEFOTETAN PMX 1GM/50ML 50 ML ONE (16:52)
[2017-05-20] MEDS ORDERED: CEFOTETAN PMX 1GM/50ML 50 ML IV ONE (17:00)
[2017-05-20] MEDS ORDERED: morphine SULFATE 10 MG/ML, 1ML IVPush PRN (17:30)
[2017-05-20] MEDS ORDERED: hydrALAzine 20 MG/ML, 1ML IVPush PRN (17:30)
[2017-05-20] MEDS ORDERED: CALCIUM/VITAMIN D3 250-125 TABLET PO PRN (17:30)
[2017-05-20] MEDS ORDERED: CEFTRIAXONE PMX 2GM/50ML 50 ML IV SCH (20:00)
[2017-05-20 20:21] VITALS: BP 119/74
[2017-05-20] MEDS ORDERED: PANTOPROZOLE 40MG TABLET PO SCH (21:00)
[2017-05-20] MEDS: BACLOFEN 10 MG TABLET PO SCH (21:04)
[2017-05-20] MEDS: GABAPENTIN 400 MG CAPSULE PO SCH (21:04)
[2017-05-20] MEDS: SODIUM CHLORIDE 0.9% 1,000 ML IV SCH (21:04)
[2017-05-20] MEDS: URSODIOL 300 MG CAPSULE PO SCH (21:05)
[2017-05-20] MEDS: METOPROLOL TARTRATE 25 MG TABLET PO SCH (21:05)
[2017-05-20] MEDS: METRONIDAZOLE PMX 500MG/100ML 100 ML IV SCH (21:36)
[2017-05-20] MEDS: CEFTRIAXONE 2 GM in DEXTROSE 5% 50 ML IV SCH (22:47)
[2017-05-21 03:08] VITALS: BP 97/59
[2017-05-21 05:46] LABS: BLOOD UREA NITROGEN 9 mg/dL (7-18)
[2017-05-21 05:52] LABS: ASPARTATE AMINO TRANSFERASE 87 U/L (15-37)
[2017-05-21 05:55] LABS: HEMATOCRIT 29.8 % (34.6-47.8); HEMOGLOBIN 10.2 g/dL (11.7-16.4); WHITE BLOOD COUNT 4.7 x10^3/uL (3.4-10)
[2017-05-21] MEDS: METOPROLOL TARTRATE 25 MG TABLET PO SCH ×2 (06:00→16:53)
[2017-05-21] MEDS: METRONIDAZOLE PMX 500MG/100ML 100 ML IV SCH ×3 (06:16→23:18)
[2017-05-21 07:37] VITALS: BP 96/60
[2017-05-21] MEDS: PANTOPRAZOLE 40 MG IV IVPush SCH (09:22)
[2017-05-21] MEDS: GABAPENTIN 400 MG CAPSULE PO SCH ×2 (09:22→21:05)
[2017-05-21] MEDS: URSODIOL 300 MG CAPSULE PO SCH ×3 (09:23→16:52)
[2017-05-21] MEDS: PAROXETINE 10 MG TABLET PO SCH (09:23)
[2017-05-21] MEDS: CHOLECALCIFEROL 1,000 UNIT TABLET PO SCH (09:24)
[2017-05-21] MEDS: BACLOFEN 10 MG TABLET PO SCH ×2 (09:24→21:05)
[2017-05-21] MEDS: ASCORBIC ACID 500 MG TABLET PO SCH (09:24)
[2017-05-21] MEDS: SODIUM CHLORIDE 0.9% 1,000 ML IV SCH ×2 (10:00→23:18)
[2017-05-21 14:00] VITALS: BP 109/58
[2017-05-21 19:40] VITALS: BP 106/64
[2017-05-21] MEDS: FLOVENT 110 MCG INH SCH (21:00)
[2017-05-21] MEDS: CEFTRIAXONE 2 GM in DEXTROSE 5% 50 ML IV SCH (21:05)
[2017-05-22 04:05] VITALS: BP 104/60
[2017-05-22 05:34] LABS: BLOOD UREA NITROGEN 7 mg/dL (7-18)
[2017-05-22 05:37] LABS: ASPARTATE AMINO TRANSFERASE 74 U/L (15-37)
[2017-05-22 05:53] LABS: HEMATOCRIT 31.2 % (34.6-47.8); HEMOGLOBIN 10.8 g/dL (11.7-16.4); WHITE BLOOD COUNT 6.3 x10^3/uL (3.4-10)
[2017-05-22] MEDS: METRONIDAZOLE PMX 500MG/100ML 100 ML IV SCH ×3 (06:11→21:33)
[2017-05-22] MEDS: METOPROLOL TARTRATE 25 MG TABLET PO SCH ×2 (06:12→19:27)
[2017-05-22 06:45] VITALS: BP 107/66
[2017-05-22] MEDS: URSODIOL 300 MG CAPSULE PO SCH ×3 (08:00→16:31)
[2017-05-22] MEDS: SPIRIVA 18 MCG INH SCH (09:00)
[2017-05-22] MEDS: BACLOFEN 10 MG TABLET PO SCH ×3 (09:00→21:34)
[2017-05-22] MEDS: GABAPENTIN 400 MG CAPSULE PO SCH ×2 (09:00→20:55)
[2017-05-22] MEDS: CHOLECALCIFEROL 1,000 UNIT TABLET PO SCH (09:00)
[2017-05-22] MEDS: PAROXETINE 10 MG TABLET PO SCH (09:00)
[2017-05-22] MEDS: FLOVENT 110 MCG INH SCH ×2 (09:00→20:54)
[2017-05-22] MEDS: ASCORBIC ACID 500 MG TABLET PO SCH (09:00)
[2017-05-22] MEDS ORDERED: PIPERACILLIN/TAZO/PMX 3.375GM 50 ML ONE (09:29)
[2017-05-22] MEDS ORDERED: ONDANSETRON 2MG/ML, 2ML IVPush PRN (09:30)
[2017-05-22] MEDS ORDERED: hydrALAzine 20 MG/ML, 1ML IV PRN (09:30)
[2017-05-22] MEDS ORDERED: EPHEDRINE 50 MG/ML, 1ML IVPush PRN (09:30)
[2017-05-22] MEDS ORDERED: HYDROmorphone 1 MG/ML, 1ML IV PRN (09:30)
[2017-05-22] MEDS ORDERED: METOPROLOL 1 MG/ML, 5ML IV PRN (09:30)
[2017-05-22] MEDS ORDERED: LABETALOL 5MG/ML, 20ML IV PRN (09:30)
[2017-05-22] MEDS ORDERED: OXYcodone 5 MG/5 ML ORAL.SOL UDC PO PRN (09:30)
[2017-05-22] MEDS ORDERED: ALBUTEROL SULFATE 2.5 MG/3 ML NPPB PRN (09:30)
[2017-05-22] MEDS ORDERED: FENTANYL PF 100 MCG/2ML IV PRN (09:30)
[2017-05-22] MEDS ORDERED: METOCLOPRAMIDE 5 MG/ML, 2ML IV PRN (09:30)
[2017-05-22] MEDS ORDERED: FENTANYL PF 100 MCG/2ML ONE (09:33)
[2017-05-22] MEDS ORDERED: DEXAMETHASONE 4 MG/ML, 1ML ONE (09:33)
[2017-05-22] MEDS ORDERED: GLYCOPYRROLATE 0.2MG/1ML, 5ML ONE (09:33)
[2017-05-22] MEDS ORDERED: EPINEPHRINE 1 MG/ML, 1ML ONE (09:33)
[2017-05-22] MEDS ORDERED: ROCURONIUM 10MG/ML,5ML ONE (09:33)
[2017-05-22] MEDS ORDERED: PROPOFOL 10 MG/ML, 20ML ONE (09:33)
[2017-05-22] MEDS ORDERED: SUCCINYLCHOLINE 20 MG/ML, 10ML ONE (09:33)
[2017-05-22] MEDS ORDERED: NEOSTIGMINE 1 MG/ML, 10ML ONE (09:33)
[2017-05-22] MEDS: PANTOPRAZOLE 40 MG IV IVPush SCH (12:42)
[2017-05-22] MEDS: SODIUM CHLORIDE 0.9% 1,000 ML IV SCH ×2 (12:42→21:35)
[2017-05-22] MEDS ORDERED: MIDAZOLAM 1 MG/ML, 2ML IVPush PRN (13:00)
[2017-05-22] MEDS ORDERED: SENNA/DOCUSATE TABLET NG PRN (13:00)
[2017-05-22] MEDS ORDERED: LACTULOSE 20 GM/30 ML UDC NG PRN (13:00)
[2017-05-22] MEDS ORDERED: SENNOSIDES 8.8 MG/5 ML ORAL SOL NG PRN (13:00)
[2017-05-22] MEDS ORDERED: PHARMACY MAY ADJ FOR RENAL FX MC SCH (13:00)
[2017-05-22] MEDS ORDERED: LIDOCAINE-MPF 1%, 2ML ENDO PRN (13:00)
[2017-05-22] MEDS ORDERED: BISACODYL 10 MG SUPP PR PRN (13:00)
[2017-05-22] MEDS: PIPERACILLIN/TAZO/PMX 3.375GM 50 ML IV SCH (16:42)
[2017-05-22] MEDS ORDERED: ALBUTEROL/IPRATROPIUM 2.5MG/0.5MG, 3 ML NPPB PRN (17:30)
[2017-05-22] MEDS: ALBUTEROL/IPRATROPIUM 2.5MG/0.5MG, 3 ML NPPB SCH ×2 (17:30→21:15)
[2017-05-22] MEDS: CEFTRIAXONE 2 GM in DEXTROSE 5% 50 ML IV SCH (20:53)
[2017-05-22] MEDS ORDERED: CALCIUM/VITAMIN D3 250-125 TABLET PO PRN (21:00)
[2017-05-23] MEDS: PIPERACILLIN/TAZO/PMX 3.375GM 50 ML IV SCH (01:07)
[2017-05-23] MEDS: ALBUTEROL/IPRATROPIUM 2.5MG/0.5MG, 3 ML NPPB SCH ×5 (03:25→20:45)
[2017-05-23 04:11] VITALS: BP 108/50
[2017-05-23 04:21] LABS: ABG COLLECTION SITE LEFT BRACHIAL
[2017-05-23 04:26] LABS: HEMATOCRIT 30.8 % (34.6-47.8); HEMOGLOBIN 10.4 g/dL (11.7-16.4); WHITE BLOOD COUNT 7.5 x10^3/uL (3.4-10)
[2017-05-23 04:34] LABS: ASPARTATE AMINO TRANSFERASE 73 U/L (15-37); BLOOD UREA NITROGEN 10 mg/dL (7-18)
[2017-05-23] MEDS: METRONIDAZOLE PMX 500MG/100ML 100 ML IV SCH ×3 (05:29→22:12)
[2017-05-23] MEDS ORDERED: MAGNESIUM SULFATE PMX 4GM/100M 100 ML IVPB ONE (06:00)
[2017-05-23] MEDS: METOPROLOL TARTRATE 25 MG TABLET PO SCH ×2 (08:50→17:40)
[2017-05-23] MEDS: ENOXAPARIN 40 MG/0.4 ML SQ SCH (08:50)
[2017-05-23] MEDS: URSODIOL 300 MG CAPSULE PO SCH ×3 (08:50→17:40)
[2017-05-23] MEDS: ASCORBIC ACID 500 MG TABLET PO SCH (08:50)
[2017-05-23] MEDS: GABAPENTIN 400 MG CAPSULE PO SCH ×2 (08:50→21:31)
[2017-05-23] MEDS: PAROXETINE 10 MG TABLET PO SCH (08:50)
[2017-05-23] MEDS: PANTOPRAZOLE 40 MG IV IVPush SCH (08:51)
[2017-05-23] MEDS: CHOLECALCIFEROL 1,000 UNIT TABLET PO SCH ×2 (08:51→09:00)
[2017-05-23] MEDS: BACLOFEN 10 MG TABLET PO SCH ×2 (08:51→21:31)
[2017-05-23] MEDS: SPIRIVA 18 MCG INH SCH (08:51)
[2017-05-23] MEDS: FLOVENT 110 MCG INH SCH ×2 (08:51→21:00)
[2017-05-23 10:57] VITALS: BP 100/66
[2017-05-23 13:42] VITALS: BP 113/69
[2017-05-23 19:09] VITALS: BP 105/66
[2017-05-23] MEDS: CEFTRIAXONE 2 GM in DEXTROSE 5% 50 ML IV SCH (21:31)
[2017-05-24 01:28] VITALS: BP 100/62
[2017-05-24 04:33] LABS: HEMATOCRIT 31.5 % (34.6-47.8); HEMOGLOBIN 10.8 g/dL (11.7-16.4); WHITE BLOOD COUNT 6.2 x10^3/uL (3.4-10)
[2017-05-24 04:39] LABS: BLOOD UREA NITROGEN 8 mg/dL (7-18)
[2017-05-24 04:44] LABS: ASPARTATE AMINO TRANSFERASE 69 U/L (15-37)
[2017-05-24 05:30] VITALS: BP 99/62
[2017-05-24] MEDS: METOPROLOL TARTRATE 25 MG TABLET PO SCH ×2 (05:31→18:45)
[2017-05-24] MEDS: METRONIDAZOLE PMX 500MG/100ML 100 ML IV SCH ×3 (05:32→22:15)
[2017-05-24 08:23] VITALS: BP 107/67
[2017-05-24] MEDS: ALBUTEROL/IPRATROPIUM 2.5MG/0.5MG, 3 ML NPPB SCH ×4 (08:38→20:45)
[2017-05-24] MEDS: PANTOPRAZOLE 40 MG IV IVPush SCH (08:52)
[2017-05-24] MEDS: URSODIOL 300 MG CAPSULE PO SCH ×3 (08:52→16:38)
[2017-05-24] MEDS: FLOVENT 110 MCG INH SCH ×2 (08:53→20:44)
[2017-05-24] MEDS: SPIRIVA 18 MCG INH SCH (08:53)
[2017-05-24] MEDS: PAROXETINE 10 MG TABLET PO SCH (08:54)
[2017-05-24] MEDS: GABAPENTIN 400 MG CAPSULE PO SCH ×2 (08:54→20:43)
[2017-05-24] MEDS: BACLOFEN 10 MG TABLET PO SCH ×2 (08:54→20:43)
[2017-05-24] MEDS: CHOLECALCIFEROL 1,000 UNIT TABLET PO SCH (08:55)
[2017-05-24] MEDS: ASCORBIC ACID 500 MG TABLET PO SCH (08:55)
[2017-05-24] MEDS: ENOXAPARIN 40 MG/0.4 ML SQ SCH (08:56)
[2017-05-24 12:22] VITALS: BP 108/67
[2017-05-24] MEDS: PSYLLIUM PACKET PO PRN (14:18)
[2017-05-24 19:38] VITALS: BP 119/74
[2017-05-24] MEDS: CEFTRIAXONE 2 GM in DEXTROSE 5% 50 ML IV SCH (21:39)
[2017-05-25 01:56] VITALS: BP 106/69
[2017-05-25] MEDS: METOPROLOL TARTRATE 25 MG TABLET PO SCH ×2 (05:48→18:41)
[2017-05-25] MEDS: METRONIDAZOLE PMX 500MG/100ML 100 ML IV SCH ×3 (05:48→22:30)
[2017-05-25] MEDS: ALBUTEROL/IPRATROPIUM 2.5MG/0.5MG, 3 ML NPPB SCH ×4 (06:56→19:03)
[2017-05-25] MEDS: PANTOPRAZOLE 40 MG IV IVPush SCH (07:58)
[2017-05-25] MEDS: URSODIOL 300 MG CAPSULE PO SCH ×3 (07:59→17:16)
[2017-05-25 08:10] VITALS: BP 111/69
[2017-05-25] MEDS: SPIRIVA 18 MCG INH SCH (09:00)
[2017-05-25] MEDS: FLOVENT 110 MCG INH SCH ×2 (09:00→21:19)
[2017-05-25] MEDS: BACLOFEN 10 MG TABLET PO SCH ×2 (09:06→21:19)
[2017-05-25] MEDS: PAROXETINE 10 MG TABLET PO SCH (09:06)
[2017-05-25] MEDS: ENOXAPARIN 40 MG/0.4 ML SQ SCH (09:06)
[2017-05-25] MEDS: GABAPENTIN 400 MG CAPSULE PO SCH ×2 (09:06→21:19)
[2017-05-25] MEDS: CHOLECALCIFEROL 1,000 UNIT TABLET PO SCH (09:07)
[2017-05-25] MEDS: ASCORBIC ACID 500 MG TABLET PO SCH (09:07)
[2017-05-25] MEDS ORDERED: MAGNESIUM SULFATE PMX 2GM/50ML 50 ML IV ONE (09:30)
[2017-05-25] MEDS ORDERED: POTASSIUM PHOSPHATE 44 MEQ in SODIUM CHLORIDE 0.9% 500 ML IV ONE (09:30)
[2017-05-25] MEDS ORDERED: POTASSIUM CHLORIDE 20 MEQ TAB.ER.PRT PO ONE (11:00)
[2017-05-25] MEDS ORDERED: FUROSEMIDE 40 MG/4 ML IV ONE (11:00)
[2017-05-25 13:29] VITALS: BP 109/74
[2017-05-25] MEDS ORDERED: OMNIPAQUE 350 MG/ML, 100ML BOTTLE ONE (13:40)
[2017-05-25 19:46] VITALS: BP 108/72
[2017-05-25] MEDS: DOXYCYCLINE 100MG TABLET PO SCH (21:27)
[2017-05-25] MEDS: CEFTRIAXONE 2 GM in DEXTROSE 5% 50 ML IV SCH (21:27)
[2017-05-26 01:36] VITALS: BP 112/76
[2017-05-26 05:48] LABS: HEMATOCRIT 33.8 % (34.6-47.8); HEMOGLOBIN 11.5 g/dL (11.7-16.4)
[2017-05-26] MEDS: METRONIDAZOLE PMX 500MG/100ML 100 ML IV SCH ×3 (06:03→22:09)
[2017-05-26] MEDS: METOPROLOL TARTRATE 25 MG TABLET PO SCH ×2 (06:03→17:13)
[2017-05-26 06:08] LABS: ASPARTATE AMINO TRANSFERASE 81 U/L (15-37); BLOOD UREA NITROGEN 6 mg/dL (7-18)
[2017-05-26] MEDS: ALBUTEROL/IPRATROPIUM 2.5MG/0.5MG, 3 ML NPPB SCH ×4 (07:25→19:44)
[2017-05-26] MEDS: PANTOPRAZOLE 40 MG IV IVPush SCH (07:30)
[2017-05-26 07:34] VITALS: BP 105/67
[2017-05-26] MEDS: URSODIOL 300 MG CAPSULE PO SCH ×3 (08:00→17:13)
[2017-05-26] MEDS: PAROXETINE 10 MG TABLET PO SCH (09:00)
[2017-05-26] MEDS: BACLOFEN 10 MG TABLET PO SCH ×2 (09:00→20:01)
[2017-05-26] MEDS: GABAPENTIN 400 MG CAPSULE PO SCH ×2 (09:00→20:01)
[2017-05-26] MEDS: DOXYCYCLINE 100MG TABLET PO SCH ×2 (09:00→20:01)
[2017-05-26] MEDS: FLOVENT 110 MCG INH SCH ×2 (09:00→20:00)
[2017-05-26] MEDS: CHOLECALCIFEROL 1,000 UNIT TABLET PO SCH (09:00)
[2017-05-26] MEDS: ASCORBIC ACID 500 MG TABLET PO SCH (09:00)
[2017-05-26] MEDS: SPIRIVA 18 MCG INH SCH (09:00)
[2017-05-26] MEDS: ENOXAPARIN 40 MG/0.4 ML SQ SCH (09:00)
[2017-05-26 12:57] VITALS: BP 112/74
[2017-05-26 19:41] VITALS: BP 118/76
[2017-05-26] MEDS: CEFTRIAXONE 2 GM in DEXTROSE 5% 50 ML IV SCH (21:08)
[2017-05-27 01:36] VITALS: BP 104/68
[2017-05-27 05:18] LABS: HEMATOCRIT 33.1 % (34.6-47.8); HEMOGLOBIN 11.3 g/dL (11.7-16.4); WHITE BLOOD COUNT 6.4 x10^3/uL (3.4-10)
[2017-05-27 05:35] LABS: ASPARTATE AMINO TRANSFERASE 107 U/L (15-37); BLOOD UREA NITROGEN 7 mg/dL (7-18)
[2017-05-27] MEDS: METRONIDAZOLE PMX 500MG/100ML 100 ML IV SCH ×3 (06:05→22:03)
[2017-05-27] MEDS: METOPROLOL TARTRATE 25 MG TABLET PO SCH ×2 (06:06→18:15)
[2017-05-27 07:06] VITALS: BP 103/67
[2017-05-27] MEDS ORDERED: MAGNESIUM SULFATE PMX 2GM/50ML 50 ML IV ONE (08:00)
[2017-05-27] MEDS: ALBUTEROL/IPRATROPIUM 2.5MG/0.5MG, 3 ML NPPB SCH ×4 (08:30→18:39)
[2017-05-27] MEDS: FUROSEMIDE 40 MG TABLET PO SCH (09:33)
[2017-05-27] MEDS: PANTOPRAZOLE 40 MG IV IVPush SCH (09:33)
[2017-05-27] MEDS: BACLOFEN 10 MG TABLET PO SCH ×2 (09:33→20:34)
[2017-05-27] MEDS: URSODIOL 300 MG CAPSULE PO SCH ×3 (09:33→18:15)
[2017-05-27] MEDS: POTASSIUM CHLORIDE 20 MEQ TAB.ER.PRT PO SCH (09:34)
[2017-05-27] MEDS: GABAPENTIN 400 MG CAPSULE PO SCH ×2 (09:34→20:34)
[2017-05-27] MEDS: DOXYCYCLINE 100MG TABLET PO SCH ×2 (09:34→20:33)
[2017-05-27] MEDS: ASCORBIC ACID 500 MG TABLET PO SCH (09:35)
[2017-05-27] MEDS: ENOXAPARIN 40 MG/0.4 ML SQ SCH (09:35)
[2017-05-27] MEDS: PAROXETINE 10 MG TABLET PO SCH (09:37)
[2017-05-27] MEDS: FLOVENT 110 MCG INH SCH ×2 (09:37→20:34)
[2017-05-27] MEDS: SPIRIVA 18 MCG INH SCH (09:37)
[2017-05-27] MEDS: CHOLECALCIFEROL 1,000 UNIT TABLET PO SCH (09:37)
[2017-05-27 11:19] LABS: CYTOLOGY BODY FLUID RECD INTO PATHOLOGY; CYTOLOGY BODY FLUID SOURCE OTHER - SEE COMMENT
[2017-05-27 11:28] LABS: CELLS COUNTED 96; DILUTION 1; WBC SQUARES COUNTED 10
[2017-05-27 14:25] VITALS: BP 111/67
[2017-05-27 18:15] VITALS: BP 112/70
[2017-05-27 18:57] VITALS: BP 114/67
[2017-05-27] MEDS: CEFTRIAXONE 2 GM in DEXTROSE 5% 50 ML IV SCH (20:33)
[2017-05-28 02:09] VITALS: BP 108/65
[2017-05-28 05:16] LABS: HEMATOCRIT 32.6 % (34.6-47.8); HEMOGLOBIN 11.2 g/dL (11.7-16.4); WHITE BLOOD COUNT 5.5 x10^3/uL (3.4-10)
[2017-05-28 05:21] VITALS: BP 100/59
[2017-05-28] MEDS: METOPROLOL TARTRATE 25 MG TABLET PO SCH ×3 (05:24→17:14)
[2017-05-28 05:34] LABS: BLOOD UREA NITROGEN 6 mg/dL (7-18)
[2017-05-28] MEDS: METRONIDAZOLE PMX 500MG/100ML 100 ML IV SCH ×3 (06:05→22:43)
[2017-05-28] MEDS: ALBUTEROL/IPRATROPIUM 2.5MG/0.5MG, 3 ML NPPB SCH ×2 (07:00→11:00)
[2017-05-28 07:02] VITALS: BP 108/68
[2017-05-28] MEDS: CHOLECALCIFEROL 1,000 UNIT TABLET PO SCH (09:00)
[2017-05-28] MEDS: URSODIOL 300 MG CAPSULE PO SCH ×3 (09:26→17:03)
[2017-05-28] MEDS: SPIRIVA 18 MCG INH SCH (09:26)
[2017-05-28] MEDS: POTASSIUM CHLORIDE 20 MEQ TAB.ER.PRT PO SCH (09:26)
[2017-05-28] MEDS: PANTOPRAZOLE 40 MG IV IVPush SCH (09:26)
[2017-05-28] MEDS: FLOVENT 110 MCG INH SCH ×2 (09:27→20:49)
[2017-05-28] MEDS: FUROSEMIDE 40 MG TABLET PO SCH (09:28)
[2017-05-28] MEDS: GABAPENTIN 400 MG CAPSULE PO SCH ×2 (09:29→20:48)
[2017-05-28] MEDS: BACLOFEN 10 MG TABLET PO SCH ×2 (09:29→20:48)
[2017-05-28] MEDS: DOXYCYCLINE 100MG TABLET PO SCH ×2 (09:30→20:48)
[2017-05-28] MEDS: PAROXETINE 10 MG TABLET PO SCH (09:30)
[2017-05-28] MEDS: ENOXAPARIN 40 MG/0.4 ML SQ SCH (09:31)
[2017-05-28] MEDS: ASCORBIC ACID 500 MG TABLET PO SCH (09:31)
[2017-05-28 12:07] VITALS: BP 115/70
[2017-05-28] MEDS ORDERED: ALBUTEROL SULFATE 2.5 MG/3 ML NPPB PRN (13:30)
[2017-05-28] MEDS: SPIRONOLACTONE 25 MG TABLET PO SCH (14:55)
[2017-05-28 17:04] VITALS: BP 99/57
[2017-05-28 18:54] VITALS: BP 116/74
[2017-05-28] MEDS: CEFTRIAXONE 2 GM in DEXTROSE 5% 50 ML IV SCH (20:48)
[2017-05-28] MEDS: OXYcodone IR 5MG TABLET PO PRN (22:43)
[2017-05-29 03:08] VITALS: BP 102/66
[2017-05-29 04:26] LABS: ABG COLLECTION SITE RIGHT BRACHIAL
[2017-05-29 04:29] LABS: HEMATOCRIT 34.1 % (34.6-47.8); HEMOGLOBIN 11.8 g/dL (11.7-16.4); WHITE BLOOD COUNT 6.4 x10^3/uL (3.4-10)
[2017-05-29 04:37] LABS: BLOOD UREA NITROGEN 5 mg/dL (7-18)
[2017-05-29 06:24] VITALS: BP 102/66
[2017-05-29] MEDS: METOPROLOL TARTRATE 25 MG TABLET PO SCH ×2 (06:28→18:25)
[2017-05-29] MEDS: METRONIDAZOLE PMX 500MG/100ML 100 ML IV SCH ×3 (06:28→22:57)
[2017-05-29] MEDS: POTASSIUM CHLORIDE 20 MEQ TAB.ER.PRT PO SCH (08:00)
[2017-05-29] MEDS: GABAPENTIN 400 MG CAPSULE PO SCH ×2 (08:09→20:01)
[2017-05-29] MEDS: URSODIOL 300 MG CAPSULE PO SCH ×3 (08:10→17:17)
[2017-05-29] MEDS: PANTOPROZOLE 40MG TABLET PO SCH (08:11)
[2017-05-29] MEDS: FUROSEMIDE 40 MG TABLET PO SCH (08:12)
[2017-05-29] MEDS: SPIRONOLACTONE 25 MG TABLET PO SCH (08:12)
[2017-05-29] MEDS: PAROXETINE 10 MG TABLET PO SCH (08:14)
[2017-05-29] MEDS: ENOXAPARIN 40 MG/0.4 ML SQ SCH (08:15)
[2017-05-29] MEDS: DOXYCYCLINE 100MG TABLET PO SCH ×2 (08:15→20:00)
[2017-05-29] MEDS: BACLOFEN 10 MG TABLET PO SCH ×2 (08:15→20:00)
[2017-05-29] MEDS: CHOLECALCIFEROL 1,000 UNIT TABLET PO SCH (08:16)
[2017-05-29] MEDS: ASCORBIC ACID 500 MG TABLET PO SCH (08:16)
[2017-05-29] MEDS: FLOVENT 110 MCG INH SCH ×2 (08:17→20:00)
[2017-05-29] MEDS: SPIRIVA 18 MCG INH SCH (08:17)
[2017-05-29] MEDS: PSYLLIUM PACKET PO PRN (09:14)
[2017-05-29 12:55] VITALS: BP 112/77
[2017-05-29 12:59] LABS: ASPARTATE AMINO TRANSFERASE 118 U/L (15-37); BLOOD UREA NITROGEN 6 mg/dL (7-18)
[2017-05-29 18:45] VITALS: BP_SYST 11; BP_SYST 110; BP_DIAS 73
[2017-05-29] MEDS: CEFTRIAXONE 2 GM in DEXTROSE 5% 50 ML IV SCH (20:54)
[2017-05-30 02:22] VITALS: BP 114/66
[2017-05-30 04:15] LABS: ABG COLLECTION SITE RIGHT RADIAL; COLLATERAL CIRCULATION TESTING NORMAL
[2017-05-30 04:31] LABS: BLOOD UREA NITROGEN 8 mg/dL (7-18)
[2017-05-30 04:32] LABS: HEMATOCRIT 32.9 % (34.6-47.8); HEMOGLOBIN 11.2 g/dL (11.7-16.4); WHITE BLOOD COUNT 7.7 x10^3/uL (3.4-10)
[2017-05-30] MEDS: METOPROLOL TARTRATE 25 MG TABLET PO SCH ×2 (05:55→18:09)
[2017-05-30] MEDS: METRONIDAZOLE PMX 500MG/100ML 100 ML IV SCH ×3 (06:05→23:10)
[2017-05-30 08:09] VITALS: BP 102/66
[2017-05-30] MEDS: SPIRIVA 18 MCG INH SCH (09:03)
[2017-05-30] MEDS: FLOVENT 110 MCG INH SCH ×2 (09:04→21:00)
[2017-05-30] MEDS: ASCORBIC ACID 500 MG TABLET PO SCH (09:04)
[2017-05-30] MEDS: CHOLECALCIFEROL 1,000 UNIT TABLET PO SCH (09:04)
[2017-05-30] MEDS: POTASSIUM CHLORIDE 20 MEQ TAB.ER.PRT PO SCH (09:05)
[2017-05-30] MEDS: URSODIOL 300 MG CAPSULE PO SCH ×3 (09:06→18:09)
[2017-05-30] MEDS: BACLOFEN 10 MG TABLET PO SCH ×2 (09:07→21:07)
[2017-05-30] MEDS: PANTOPROZOLE 40MG TABLET PO SCH (09:07)
[2017-05-30] MEDS: PAROXETINE 10 MG TABLET PO SCH (09:07)
[2017-05-30] MEDS: GABAPENTIN 400 MG CAPSULE PO SCH ×2 (09:08→21:07)
[2017-05-30] MEDS: ENOXAPARIN 40 MG/0.4 ML SQ SCH (09:08)
[2017-05-30] MEDS: DOXYCYCLINE 100MG TABLET PO SCH ×2 (09:09→21:07)
[2017-05-30] MEDS: PSYLLIUM PACKET PO PRN (10:48)
[2017-05-30] MEDS: CALCIUM CARBONATE 500 MG TAB.CHEW PO PRN (10:48)
[2017-05-30] MEDS: FUROSEMIDE 40 MG TABLET PO SCH (10:50)
[2017-05-30] MEDS: SPIRONOLACTONE 25 MG TABLET PO SCH (10:50)
[2017-05-30] MEDS: ONDANSETRON 2MG/ML, 2ML IVPush PRN (14:35)
[2017-05-30 14:38] VITALS: BP 112/75
[2017-05-30 19:02] VITALS: BP 101/61
[2017-05-30] MEDS: CEFTRIAXONE 2 GM in DEXTROSE 5% 50 ML IV SCH (21:08)
[2017-05-31] VITALS (8 sets, daily range): BP systolic 88–119; BP diastolic 51–75
[2017-05-31] MEDS: METOPROLOL TARTRATE 25 MG TABLET PO SCH ×2 (06:00→17:46)
[2017-05-31] MEDS ORDERED: MAGNESIUM SULFATE PMX 4GM/100M 100 ML IV ONE (07:30)
[2017-05-31] MEDS: METRONIDAZOLE PMX 500MG/100ML 100 ML IV SCH (07:48)
[2017-05-31] MEDS: FUROSEMIDE 40 MG TABLET PO SCH (07:50)
[2017-05-31] MEDS: URSODIOL 300 MG CAPSULE PO SCH ×3 (07:50→17:46)
[2017-05-31] MEDS: BACLOFEN 10 MG TABLET PO SCH ×2 (07:51→20:59)
[2017-05-31] MEDS: DOXYCYCLINE 100MG TABLET PO SCH ×2 (07:51→22:23)
[2017-05-31] MEDS: GABAPENTIN 400 MG CAPSULE PO SCH ×2 (07:52→20:59)
[2017-05-31] MEDS: PAROXETINE 10 MG TABLET PO SCH (07:52)
[2017-05-31] MEDS: ASCORBIC ACID 500 MG TABLET PO SCH (07:52)
[2017-05-31] MEDS: SPIRONOLACTONE 25 MG TABLET PO SCH (07:53)
[2017-05-31] MEDS: CHOLECALCIFEROL 1,000 UNIT TABLET PO SCH (07:53)
[2017-05-31] MEDS: ENOXAPARIN 40 MG/0.4 ML SQ SCH (07:54)
[2017-05-31] MEDS: SPIRIVA 18 MCG INH SCH (07:54)
[2017-05-31] MEDS: FLOVENT 110 MCG INH SCH ×2 (07:54→21:00)
[2017-05-31] MEDS: PANTOPROZOLE 40MG TABLET PO SCH (07:57)
[2017-05-31] MEDS ORDERED: ALBUTEROL SULFATE 2.5 MG/3 ML NPPB PRN (08:00)
[2017-05-31] MEDS: ONDANSETRON 2MG/ML, 2ML IVPush PRN (09:21)
[2017-05-31] MEDS: POTASSIUM CHLORIDE 20 MEQ TAB.ER.PRT PO SCH (09:21)
[2017-05-31] MEDS ORDERED: LIDOCAINE 2%, 20ML ONE (09:49)
[2017-05-31] MEDS: OXYcodone IR 5MG TABLET PO PRN (12:26)
[2017-06-01 02:36] VITALS: BP 94/58
[2017-06-01] MEDS: METOPROLOL TARTRATE 25 MG TABLET PO SCH ×2 (05:26→18:16)
[2017-06-01 07:42] VITALS: BP 112/74
[2017-06-01] MEDS ORDERED: FURO40TA6 PO (09:49)
[2017-06-01] MEDS ORDERED: SPIR50TA PO (09:49)
[2017-06-01] MEDS: BISACODYL 10 MG SUPP PR SCH (10:19)
[2017-06-01] MEDS: POTASSIUM CHLORIDE 20 MEQ TAB.ER.PRT PO SCH (10:19)
[2017-06-01] MEDS: CHOLECALCIFEROL 1,000 UNIT TABLET PO SCH (10:20)
[2017-06-01] MEDS: ASCORBIC ACID 500 MG TABLET PO SCH (10:20)
[2017-06-01] MEDS: ENOXAPARIN 40 MG/0.4 ML SQ SCH (10:21)
[2017-06-01] MEDS: URSODIOL 300 MG CAPSULE PO SCH ×3 (10:22→18:16)
[2017-06-01] MEDS: BACLOFEN 10 MG TABLET PO SCH ×2 (10:22→21:21)
[2017-06-01] MEDS: SPIRONOLACTONE 50 MG TABLET PO SCH (10:22)
[2017-06-01] MEDS: GABAPENTIN 400 MG CAPSULE PO SCH ×2 (10:22→21:21)
[2017-06-01] MEDS: PANTOPROZOLE 40MG TABLET PO SCH (10:22)
[2017-06-01] MEDS: DOXYCYCLINE 100MG TABLET PO SCH ×2 (10:23→21:21)
[2017-06-01] MEDS: SPIRIVA 18 MCG INH SCH (10:23)
[2017-06-01] MEDS: PAROXETINE 10 MG TABLET PO SCH (10:23)
[2017-06-01] MEDS: FLOVENT 110 MCG INH SCH ×2 (10:23→21:00)
[2017-06-01] MEDS: FUROSEMIDE 40 MG TABLET PO SCH (10:23)
[2017-06-01 13:59] VITALS: BP 107/73
[2017-06-01 18:39] VITALS: BP 112/71
[2017-06-02 04:50] VITALS: BP 102/64
[2017-06-02] MEDS: METOPROLOL TARTRATE 25 MG TABLET PO SCH ×2 (06:44→17:28)
[2017-06-02 07:49] VITALS: BP 122/72
[2017-06-02] MEDS: POTASSIUM CHLORIDE 20 MEQ TAB.ER.PRT PO SCH (07:57)
[2017-06-02] MEDS: BISACODYL 10 MG SUPP PR SCH (07:59)
[2017-06-02] MEDS: ASCORBIC ACID 500 MG TABLET PO SCH (07:59)
[2017-06-02] MEDS: CHOLECALCIFEROL 1,000 UNIT TABLET PO SCH (07:59)
[2017-06-02] MEDS: PANTOPROZOLE 40MG TABLET PO SCH (08:01)
[2017-06-02] MEDS: BACLOFEN 10 MG TABLET PO SCH ×2 (08:01→21:05)
[2017-06-02] MEDS: ENOXAPARIN 40 MG/0.4 ML SQ SCH (08:01)
[2017-06-02] MEDS: PAROXETINE 10 MG TABLET PO SCH (08:01)
[2017-06-02] MEDS: GABAPENTIN 400 MG CAPSULE PO SCH ×2 (08:01→21:06)
[2017-06-02] MEDS: URSODIOL 300 MG CAPSULE PO SCH ×3 (08:01→17:28)
[2017-06-02] MEDS: DOXYCYCLINE 100MG TABLET PO SCH (08:01)
[2017-06-02] MEDS: FLOVENT 110 MCG INH SCH ×2 (08:04→21:00)
[2017-06-02] MEDS: SPIRIVA 18 MCG INH SCH (08:04)
[2017-06-02] MEDS: SPIRONOLACTONE 50 MG TABLET PO SCH (09:00)
[2017-06-02] MEDS ORDERED: MAGNESIUM SULFATE PMX 4GM/100M 100 ML IV ONE (09:30)
[2017-06-02] MEDS: CALCIUM CARBONATE 500 MG TAB.CHEW PO PRN (10:39)
[2017-06-02] MEDS: FUROSEMIDE 40 MG TABLET PO SCH (10:45)
[2017-06-02] MEDS: ONDANSETRON 2MG/ML, 2ML IVPush PRN (13:36)
[2017-06-02 14:42] VITALS: BP 104/58
[2017-06-02] MEDS: MAGNESIUM CARBONATE 54 MG/5 ML ORAL SOL PO SCH ×2 (15:43→21:06)
[2017-06-02 19:47] VITALS: BP 94/60
[2017-06-02] MEDS ORDERED: MAGNESIUM OXIDE 400 MG TABLET PO SCH (21:00)
[2017-06-03 01:15] VITALS: BP 98/60
[2017-06-03 05:23] LABS: BLOOD UREA NITROGEN 13 mg/dL (7-18)
[2017-06-03 06:00] VITALS: BP 99/63
[2017-06-03] MEDS: METOPROLOL TARTRATE 25 MG TABLET PO SCH ×2 (06:00→18:16)
[2017-06-03] MEDS: POTASSIUM CHLORIDE 20 MEQ TAB.ER.PRT PO SCH (08:00)
[2017-06-03 08:26] VITALS: BP 115/70
[2017-06-03] MEDS: FUROSEMIDE 40 MG TABLET PO SCH (09:00)
[2017-06-03] MEDS: CHOLECALCIFEROL 1,000 UNIT TABLET PO SCH (09:00)
[2017-06-03] MEDS: FLOVENT 110 MCG INH SCH ×2 (09:00→19:58)
[2017-06-03] MEDS: SPIRONOLACTONE 50 MG TABLET PO SCH (09:00)
[2017-06-03] MEDS: SPIRIVA 18 MCG INH SCH (09:00)
[2017-06-03] MEDS: ASCORBIC ACID 500 MG TABLET PO SCH (09:00)
[2017-06-03] MEDS: MAGNESIUM CARBONATE 54 MG/5 ML ORAL SOL PO SCH ×2 (09:26→19:59)
[2017-06-03] MEDS: URSODIOL 300 MG CAPSULE PO SCH ×3 (09:27→18:16)
[2017-06-03] MEDS: PANTOPROZOLE 40MG TABLET PO SCH (09:27)
[2017-06-03] MEDS: BACLOFEN 10 MG TABLET PO SCH ×2 (09:28→20:01)
[2017-06-03] MEDS: PAROXETINE 10 MG TABLET PO SCH (09:28)
[2017-06-03] MEDS: GABAPENTIN 400 MG CAPSULE PO SCH ×2 (09:28→20:01)
[2017-06-03] MEDS: ENOXAPARIN 40 MG/0.4 ML SQ SCH (09:29)
[2017-06-03 14:01] VITALS: BP 108/67
[2017-06-03] MEDS ORDERED: LIDOCAINE 1%, 20ML ONE (14:48)
[2017-06-03] MEDS ORDERED: MAGNESIUM SULFATE PMX 2GM/50ML 50 ML IV ONE (17:00)
[2017-06-03] MEDS: OXYcodone IR 5MG TABLET PO PRN (18:14)
[2017-06-03] MEDS: SENNA/DOCUSATE TABLET NG SCH ×2 (18:14→20:00)
[2017-06-03 19:16] VITALS: BP 107/72
[2017-06-04 01:55] VITALS: BP 94/58
[2017-06-04 05:21] LABS: BLOOD UREA NITROGEN 12 mg/dL (7-18)
[2017-06-04] MEDS: METOPROLOL TARTRATE 25 MG TABLET PO SCH (06:00)
[2017-06-04 07:06] LABS: HEMATOCRIT 32.5 % (34.6-47.8); HEMOGLOBIN 11.2 g/dL (11.7-16.4); WHITE BLOOD COUNT 5.3 x10^3/uL (3.4-10)
[2017-06-04] MEDS: PANTOPROZOLE 40MG TABLET PO SCH (07:59)
[2017-06-04] MEDS: POTASSIUM CHLORIDE 20 MEQ TAB.ER.PRT PO SCH (08:00)
[2017-06-04] MEDS ORDERED: POLY17PO5 PO (08:53)
[2017-06-04] MEDS ORDERED: BISA10SU65 PR (08:53)
[2017-06-04] MEDS ORDERED: POLYETHYLENE GLYCOL 17 GM PACKET PO SCH (09:00)
[2017-06-04] MEDS: ASCORBIC ACID 500 MG TABLET PO SCH (09:00)
[2017-06-04] MEDS: CHOLECALCIFEROL 1,000 UNIT TABLET PO SCH (09:00)
[2017-06-04] MEDS: FUROSEMIDE 40 MG TABLET PO SCH (09:00)
[2017-06-04] MEDS: MAGNESIUM CARBONATE 54 MG/5 ML ORAL SOL PO SCH (09:00)
[2017-06-04 09:42] VITALS: BP 96/62
[2017-06-04] MEDS: URSODIOL 300 MG CAPSULE PO SCH (09:59)
[2017-06-04] MEDS: GABAPENTIN 400 MG CAPSULE PO SCH (10:00)
[2017-06-04] MEDS: PAROXETINE 10 MG TABLET PO SCH (10:05)
[2017-06-04] MEDS: SPIRONOLACTONE 50 MG TABLET PO SCH (10:08)
[2017-06-04] MEDS: BACLOFEN 10 MG TABLET PO SCH (10:10)
[2017-06-04] MEDS: SPIRIVA 18 MCG INH SCH (10:14)
[2017-06-04] MEDS: FLOVENT 110 MCG INH SCH (10:18)
[2017-06-04] MEDS: ENOXAPARIN 40 MG/0.4 ML SQ SCH (10:22)
== END 2017-06-04 16:29 | DRG 919 ==
LOC: ED 16:24 → EDIP 16:50 → SUATTDRO 16:53 → 3NE 20:11 → CCU 05-22 12:06 → 3NW 05-23 11:01
PROVIDERS: ADMIT Hospitalist; ATTEND Hospitalist
PROC: 0T9B70Z Drainage of Bladder with Drainage Device, Via Natural or Artificial Opening (ICD-10-PCS; principal; 2017-05-20)
PROC: 0FPB8DZ Removal of Intraluminal Device from Hepatobiliary Duct, Via Natural or Artificial Opening Endoscopic (ICD-10-PCS; 2017-05-22)
PROC: 0F798DZ Dilation of Common Bile Duct with Intraluminal Device, Via Natural or Artificial Opening Endoscopic (ICD-10-PCS; 2017-05-22)
PROC: 0FB98ZX Excision of Common Bile Duct, Via Natural or Artificial Opening Endoscopic, Diagnostic (ICD-10-PCS; 2017-05-22)
PROC: BF101ZZ Fluoroscopy of Bile Ducts using Low Osmolar Contrast (ICD-10-PCS; 2017-05-22)
PROC: 0W9G30Z Drainage of Peritoneal Cavity with Drainage Device, Percutaneous Approach (ICD-10-PCS; 2017-05-27)
PROC: 0W9G30Z Drainage of Peritoneal Cavity with Drainage Device, Percutaneous Approach (ICD-10-PCS; 2017-05-31)
PROC: 0WJG3ZZ Inspection of Peritoneal Cavity, Percutaneous Approach (ICD-10-PCS; 2017-06-03)
DX: T85.590A Other mechanical complication of bile duct prosthesis, initial encounter (principal); E43 Unspecified severe protein-calorie malnutrition; J96.21 Acute and chronic respiratory failure with hypoxia; J18.9 Pneumonia, unspecified organism; K83.0 Cholangitis; I11.0 Hypertensive heart disease with heart failure; K83.1 Obstruction of bile duct; I50.32 Chronic diastolic (congestive) heart failure; R18.8 Other ascites; J44.0 Chronic obstructive pulmonary disease with (acute) lower respiratory infection; K56.49 Other impaction of intestine; I07.1 Rheumatic tricuspid insufficiency; E83.42 Hypomagnesemia; D64.9 Anemia, unspecified; I35.8 Other nonrheumatic aortic valve disorders; E78.5 Hyperlipidemia, unspecified; I25.10 Atherosclerotic heart disease of native coronary artery without angina pectoris; I25.2 Old myocardial infarction; K21.9 Gastro-esophageal reflux disease without esophagitis; R62.7 Adult failure to thrive; Z75.1 Person awaiting admission to adequate facility elsewhere; Z80.8 Family history of malignant neoplasm of other organs or systems; Z86.711 Personal history of pulmonary embolism; Z90.49 Acquired absence of other specified parts of digestive tract; Z90.710 Acquired absence of both cervix and uterus; Z99.81 Dependence on supplemental oxygen; Z95.5 Presence of coronary angioplasty implant and graft; Z68.28 Body mass index [BMI] 28.0-28.9, adult
CPT/HCPCS: 36415; 36600; 49083; 71010; 71250; 74000; 74020; 74177; 74328; 78226; 80048; 80053; 81001; 82042; 82247; 82248; 82803; 83605; 83615; 83690; 83735; 84100; 84157; 84439; 84443; 84478; 85025; 85610; 85730; 87040; 87070; 87081; 87205; 88104; 88112; 88305; 89051; 93005; 93306; 94002; 94150; 94640; 96360; 96361; J0171; J0696; J1100; J1650; J1940; J2405; J2543; J2704; J2710; J3010; J3490; J7620; Q9967; A9537; C1769; C1874; C9113; C9898; J0330; J3475; J7030; J7040; S0074

== ENCOUNTER 2018-03-02 01:38 | Inpatient (IN) | payer MEDICARE ==
[~2018-03-02] VITALS: Ht 144.8 cm; Wt 67.4 kg
[~2018-03-02 01:38] MED LIST changes: +BISA10SU65 PR; +FURO40TA6 PO; +SPIR50TA PO
[2018-03-02] MEDS ORDERED: SODIUM CHLORIDE FLUSH 10ML SYR IVF ONE (02:00)
[2018-03-02] MEDS ORDERED: SODIUM CHLORIDE 0.9% 1,000ML IVBOLUS ONE (02:00)
[2018-03-02] MEDS ORDERED: ONDANSETRON ODT 4 MG ONE (03:10)
[2018-03-02] MEDS ORDERED: PANTOPRAZOLE 40 MG IV ONE (03:10)
[2018-03-02] MEDS ORDERED: SIMV5TAB5 PO (04:09)
[2018-03-02] MEDS ORDERED: LEVE250T28 PO (04:09)
[2018-03-02] MEDS ORDERED: METO25TA35 PO (04:09)
[2018-03-02] MEDS ORDERED: OXYcodone/APAP 5/325MG TABLET PO PRN (04:30)
[2018-03-02] MEDS ORDERED: POLYETHYLENE GLYCOL 17 GM PACKET PO PRN (04:30)
[2018-03-02] MEDS ORDERED: ONDANSETRON ODT 4 MG PO PRN (04:30)
[2018-03-02] MEDS ORDERED: PROMETHAZINE 25 MG/ML, 1ML IM PRN (04:30)
[2018-03-02] MEDS ORDERED: GABAPENTIN 300 MG CAPSULE PO PRN ×2 (04:30→11:00)
[2018-03-02] MEDS ORDERED: BISACODYL 10 MG SUPP PR PRN (04:30)
[2018-03-02] MEDS ORDERED: LABETALOL 5MG/ML, 20ML IVPush PRN (04:30)
[2018-03-02] MEDS ORDERED: hydrALAzine 20 MG/ML, 1ML IVPush PRN (04:30)
[2018-03-02] MEDS ORDERED: ONDANSETRON 2MG/ML, 2ML IVPush PRN (04:30)
[2018-03-02 05:08] VITALS: BP 100/63
[2018-03-02] MEDS: CEFTRIAXONE 2 GM in SODIUM CHLORIDE 0.9% 50 ML IV SCH (05:18)
[2018-03-02] MEDS: SODIUM CHLORIDE 0.9% 1,000 ML IV SCH ×3 (05:18→22:02)
[2018-03-02] MEDS ORDERED: GABAPENTIN MC SCH (05:30)
[2018-03-02 05:54] LABS: BASOPHILS # (AUTO) 0.03 x10^3/uL (0-0.1); BASOPHILS % (AUTO) 0 % (0-1); EOSINOPHILS # (AUTO) 0.15 x10^3/uL (0-0.4); EOSINOPHILS % (AUTO) 2 % (1-7); LYMPHOCYTES # (AUTO) 0.98 x10^3/uL (1-3.4); LYMPHOCYTES % (AUTO) 13 % (22-44); MD NO; MEAN CORPUSCULAR HEMOGLOBIN 32.5 pg (27.0-34.8); MEAN CORPUSCULAR VOLUME 98.5 fL (80-100); MEAN PLATELET VOLUME 8.4 fL (7.4-10.4); MONOCYTES # (AUTO) 0.73 x10^3/uL (0.2-0.8); MONOCYTES % (AUTO) 10 % (2-9); NEUTROPHILS % (AUTO) 75 % (42-75); PLATELET COUNT 137 x10^3/uL (130-400); RED BLOOD COUNT 3.17 x10^6/uL (3.82-5.3); RED CELL DISTRIBUTION WIDTH 14.6 % (9.6-15.2)
[2018-03-02 06:10] LABS: ALBUMIN 2.3 g/dL (3.4-5.0); ANION GAP 5 mmol/L (5-15); CALCIUM 8.4 mg/dL (8.5-10.1); CHLORIDE 110 mmol/L (98-107)
[2018-03-02 06:19] LABS: HEMOGLOBIN A1C 4.9 % (4.2-6.3)
[2018-03-02 06:20] LABS: ALANINE AMINOTRANSFERASE 22 U/L (12-78); ALKALINE PHOSPHATASE 172 U/L (45-117); CHOL/HDL RATIO 2.1; CHOLESTEROL, TOTAL 123 mg/dL (140-239); CREATININE 0.81 mg/dL (0.55-1.02); FREE T4 (FREE THYROXINE) 1.34 ng/dL (0.76-1.46); HDL CHOL % 47 % (28-40); HDL CHOLESTEROL (DIRECT) 58 mg/dL (40-60); LDL CHOLESTEROL,CALCULATED 54 mg/dL (54-169); LDL/HDL RATIO 0.9 (0.5-3.0); TOTAL PROTEIN 5.9 g/dL (6.4-8.2); TRIGLYCERIDES 56 mg/dL (50-200); VLDL CHOLESTEROL 11 mg/dL (0-25)
[2018-03-02] MEDS: ALBUTEROL/IPRATROPIUM 2.5MG/0.5MG, 3 ML NPPB SCH ×3 (07:19→21:00)
[2018-03-02 08:00] VITALS: BP 108/64
[2018-03-02] MEDS: URSODIOL 300 MG CAPSULE PO SCH ×4 (08:00→14:05)
[2018-03-02] MEDS: METOPROLOL TARTRATE 25 MG TABLET PO SCH ×2 (08:53→19:39)
[2018-03-02] MEDS: GABAPENTIN 400 MG CAPSULE PO SCH ×3 (08:53→19:48)
[2018-03-02] MEDS: LEVETIRACETAM 500 MG TABLET PO SCH ×3 (08:53→19:48)
[2018-03-02] MEDS: CHOLECALCIFEROL 5,000u TAB PO SCH (08:55)
[2018-03-02] MEDS: ASCORBIC ACID 500 MG TABLET PO SCH (08:55)
[2018-03-02] MEDS: SENNA/DOCUSATE TABLET PO SCH (08:55)
[2018-03-02] MEDS: morphine SULFATE 10 MG/ML, 1ML IVPush PRN ×3 (10:35→20:59)
[2018-03-02 11:01] LABS: CULTURE INDICATED? YES; MICROSCOPIC INDICATED
[2018-03-02 12:56] VITALS: BP 109/66
[2018-03-02 19:35] VITALS: BP 102/62
[2018-03-02] MEDS: PANTOPROZOLE 40MG TABLET PO SCH (19:38)
[2018-03-02] MEDS: SIMVASTATIN 5 MG TABLET PO SCH (19:39)
[2018-03-03 01:56] VITALS: BP 109/70
[2018-03-03] MEDS: SODIUM CHLORIDE 0.9% 1,000 ML IV SCH (05:34)
[2018-03-03] MEDS: CEFTRIAXONE 2 GM in SODIUM CHLORIDE 0.9% 50 ML IV SCH (05:34)
[2018-03-03] MEDS: SENNA/DOCUSATE TABLET PO SCH (08:08)
[2018-03-03] MEDS: URSODIOL 300 MG CAPSULE PO SCH ×3 (08:08→16:34)
[2018-03-03] MEDS: LEVETIRACETAM 500 MG TABLET PO SCH ×2 (08:08→20:34)
[2018-03-03] MEDS: GABAPENTIN 400 MG CAPSULE PO SCH ×2 (08:09→20:34)
[2018-03-03] MEDS: METOPROLOL TARTRATE 25 MG TABLET PO SCH ×2 (08:09→20:34)
[2018-03-03] MEDS: CHOLECALCIFEROL 5,000u TAB PO SCH (08:09)
[2018-03-03] MEDS: ASCORBIC ACID 500 MG TABLET PO SCH (08:09)
[2018-03-03 08:14] VITALS: BP 119/69
[2018-03-03] MEDS: ALBUTEROL/IPRATROPIUM 2.5MG/0.5MG, 3 ML NPPB SCH ×3 (09:00→20:45)
[2018-03-03] MEDS: HYDROcodone/APAP 5/325 TABLET PO PRN ×3 (11:31→20:33)
[2018-03-03 14:42] VITALS: BP 137/74
[2018-03-03] MEDS: ENOXAPARIN 40 MG/0.4 ML SQ SCH (16:34)
[2018-03-03 19:36] VITALS: BP 126/66
[2018-03-03] MEDS: SIMVASTATIN 5 MG TABLET PO SCH (20:33)
[2018-03-03] MEDS: PANTOPROZOLE 40MG TABLET PO SCH (20:33)
[2018-03-04 02:25] VITALS: BP 112/69
[2018-03-04] MEDS: ALBUTEROL/IPRATROPIUM 2.5MG/0.5MG, 3 ML NPPB SCH ×4 (03:00→21:00)
[2018-03-04] MEDS: CEFTRIAXONE 2 GM in SODIUM CHLORIDE 0.9% 50 ML IV SCH (05:18)
[2018-03-04 05:32] LABS: MEAN CORPUSCULAR HEMOGLOBIN 33.2 pg (27.0-34.8); MEAN CORPUSCULAR HGB CONC 33.9 g/dL (32.4-35.8); MEAN CORPUSCULAR VOLUME 98.1 fL (80-100); RED BLOOD COUNT 2.66 x10^6/uL (3.82-5.3); RED CELL DISTRIBUTION WIDTH 14.3 % (9.6-15.2)
[2018-03-04 05:39] LABS: ANION GAP 6 mmol/L (5-15); CALCIUM 8.1 mg/dL (8.5-10.1); CHLORIDE 111 mmol/L (98-107); CREATININE 0.63 mg/dL (0.55-1.02)
[2018-03-04 05:57] LABS: BASOPHILS # (AUTO) 0.04 x10^3/uL (0-0.1); BASOPHILS % (AUTO) 1 % (0-1); EOSINOPHILS % (AUTO) 3 % (1-7); LYMPHOCYTES % (AUTO) 27 % (22-44); MD SCAN; MEAN PLATELET VOLUME 8.1 fL (7.4-10.4); MONOCYTES # (AUTO) 0.38 x10^3/uL (0.2-0.8); MONOCYTES % (AUTO) 11 % (2-9); NEUTROPHILS # (AUTO) 1.98 x10^3/uL (1.8-6.8); NEUTROPHILS % (AUTO) 58 % (42-75); PLATELET COUNT 94 x10^3/uL (130-400)
[2018-03-04 07:52] VITALS: BP 139/83
[2018-03-04] MEDS: SENNA/DOCUSATE TABLET PO SCH (08:28)
[2018-03-04] MEDS: ASCORBIC ACID 500 MG TABLET PO SCH (08:29)
[2018-03-04] MEDS: CHOLECALCIFEROL 5,000u TAB PO SCH (08:29)
[2018-03-04] MEDS: GABAPENTIN 400 MG CAPSULE PO SCH ×2 (08:29→20:31)
[2018-03-04] MEDS: METOPROLOL TARTRATE 25 MG TABLET PO SCH ×2 (08:30→20:30)
[2018-03-04] MEDS: LEVETIRACETAM 500 MG TABLET PO SCH ×2 (08:30→20:31)
[2018-03-04] MEDS: URSODIOL 300 MG CAPSULE PO SCH ×3 (08:39→16:54)
[2018-03-04] MEDS: HYDROcodone/APAP 5/325 TABLET PO PRN ×3 (09:55→21:23)
[2018-03-04] MEDS: MAGNESIUM CHLORIDE 64 MG TABLET.DR PO SCH ×2 (10:41→20:31)
[2018-03-04] MEDS ORDERED: MAGNESIUM SULFATE PMX 2GM/50ML 50 ML IV ONE (11:00)
[2018-03-04 15:09] VITALS: BP 131/78
[2018-03-04] MEDS: ENOXAPARIN 40 MG/0.4 ML SQ SCH (16:53)
[2018-03-04] MEDS: PANTOPROZOLE 40MG TABLET PO SCH (20:30)
[2018-03-04] MEDS: SIMVASTATIN 5 MG TABLET PO SCH (20:31)
[2018-03-04 20:48] VITALS: BP 114/67
[2018-03-05 01:20] VITALS: BP 102/56
[2018-03-05] MEDS: ALBUTEROL/IPRATROPIUM 2.5MG/0.5MG, 3 ML NPPB SCH ×4 (03:00→21:00)
[2018-03-05] MEDS ORDERED: CEFTRIAXONE 2 GM in SODIUM CHLORIDE 0.9% 100 ML IV SCH (05:00)
[2018-03-05 08:14] VITALS: BP 102/63
[2018-03-05] MEDS: LEVETIRACETAM 500 MG TABLET PO SCH ×2 (09:00→21:00)
[2018-03-05] MEDS: ASCORBIC ACID 500 MG TABLET PO SCH (09:00)
[2018-03-05] MEDS: URSODIOL 300 MG CAPSULE PO SCH ×3 (10:11→17:58)
[2018-03-05] MEDS: SENNA/DOCUSATE TABLET PO SCH (10:13)
[2018-03-05] MEDS: CHOLECALCIFEROL 5,000u TAB PO SCH (10:13)
[2018-03-05] MEDS: GABAPENTIN 400 MG CAPSULE PO SCH ×2 (10:13→20:55)
[2018-03-05] MEDS: MAGNESIUM CHLORIDE 64 MG TABLET.DR PO SCH ×2 (10:13→20:55)
[2018-03-05] MEDS: METOPROLOL TARTRATE 25 MG TABLET PO SCH ×2 (10:13→20:55)
[2018-03-05] MEDS: morphine SULFATE 10 MG/ML, 1ML IVPush PRN (10:30)
[2018-03-05 14:23] VITALS: BP 97/61
[2018-03-05] MEDS: ENOXAPARIN 40 MG/0.4 ML SQ SCH (16:26)
[2018-03-05 18:53] VITALS: BP 135/74
[2018-03-05] MEDS: PANTOPROZOLE 40MG TABLET PO SCH (20:55)
[2018-03-05] MEDS: SIMVASTATIN 5 MG TABLET PO SCH (20:55)
[2018-03-05] MEDS: HYDROcodone/APAP 5/325 TABLET PO PRN (23:31)
[2018-03-06] MEDS: ALBUTEROL/IPRATROPIUM 2.5MG/0.5MG, 3 ML NPPB SCH ×4 (02:36→19:51)
[2018-03-06 02:40] VITALS: BP 131/79
[2018-03-06] MEDS: CEFTRIAXONE 2 GM in SODIUM CHLORIDE 0.9% 50 ML IV SCH (04:41)
[2018-03-06 05:31] LABS: BASOPHILS # (AUTO) 0.02 x10^3/uL (0-0.1); BASOPHILS % (AUTO) 1 % (0-1); CALCIUM 8.5 mg/dL (8.5-10.1); CREATININE 0.64 mg/dL (0.55-1.02); EOSINOPHILS # (AUTO) 0.14 x10^3/uL (0-0.4); EOSINOPHILS % (AUTO) 4 % (1-7); LYMPHOCYTES # (AUTO) 0.68 x10^3/uL (1-3.4); LYMPHOCYTES % (AUTO) 21 % (22-44); MD NO; MEAN CORPUSCULAR HGB CONC 33.6 g/dL (32.4-35.8); MEAN CORPUSCULAR VOLUME 98.2 fL (80-100); MEAN PLATELET VOLUME 8.1 fL (7.4-10.4); MONOCYTES # (AUTO) 0.39 x10^3/uL (0.2-0.8); MONOCYTES % (AUTO) 12 % (2-9); NEUTROPHILS # (AUTO) 1.98 x10^3/uL (1.8-6.8); NEUTROPHILS % (AUTO) 62 % (42-75); PLATELET COUNT 118 x10^3/uL (130-400); RED BLOOD COUNT 2.95 x10^6/uL (3.82-5.3); RED CELL DISTRIBUTION WIDTH 14.3 % (9.6-15.2)
[2018-03-06 05:52] LABS: ANION GAP 5 mmol/L (5-15); CHLORIDE 107 mmol/L (98-107)
[2018-03-06 07:44] VITALS: BP 120/70
[2018-03-06] MEDS: LEVETIRACETAM 500 MG TABLET PO SCH ×2 (07:49→20:24)
[2018-03-06] MEDS: METOPROLOL TARTRATE 25 MG TABLET PO SCH ×2 (07:50→20:23)
[2018-03-06] MEDS: MAGNESIUM CHLORIDE 64 MG TABLET.DR PO SCH ×2 (07:51→20:23)
[2018-03-06] MEDS: URSODIOL 300 MG CAPSULE PO SCH ×3 (07:51→16:23)
[2018-03-06] MEDS: SENNA/DOCUSATE TABLET PO SCH (07:51)
[2018-03-06] MEDS: GABAPENTIN 400 MG CAPSULE PO SCH ×2 (07:51→20:23)
[2018-03-06] MEDS: ASCORBIC ACID 500 MG TABLET PO SCH (07:51)
[2018-03-06] MEDS: CHOLECALCIFEROL 5,000u TAB PO SCH (07:51)
[2018-03-06 13:45] VITALS: BP 107/64
[2018-03-06] MEDS: ENOXAPARIN 40 MG/0.4 ML SQ SCH (16:23)
[2018-03-06] MEDS: PANTOPROZOLE 40MG TABLET PO SCH (20:23)
[2018-03-06] MEDS: SIMVASTATIN 5 MG TABLET PO SCH (20:24)
[2018-03-06 20:25] VITALS: BP 101/63
[2018-03-06] MEDS: morphine SULFATE 10 MG/ML, 1ML IVPush PRN (21:18)
[2018-03-07] MEDS: BACLOFEN 10 MG TABLET PO PRN ×2 (00:52→23:23)
[2018-03-07 00:55] VITALS: BP 105/60
[2018-03-07] MEDS: ALBUTEROL/IPRATROPIUM 2.5MG/0.5MG, 3 ML NPPB SCH ×4 (03:00→21:00)
[2018-03-07] MEDS: CEFTRIAXONE 2 GM in SODIUM CHLORIDE 0.9% 50 ML IV SCH (04:35)
[2018-03-07 07:50] VITALS: BP 121/73
[2018-03-07] MEDS ORDERED: NITROFURANTOIN (MACROBID) 100 MG CAPSULE PO SCH (09:00)
[2018-03-07] MEDS: MAGNESIUM CHLORIDE 64 MG TABLET.DR PO SCH ×2 (09:12→19:41)
[2018-03-07] MEDS: ASCORBIC ACID 500 MG TABLET PO SCH (09:13)
[2018-03-07] MEDS: LEVETIRACETAM 500 MG TABLET PO SCH ×2 (09:13→19:42)
[2018-03-07] MEDS: GABAPENTIN 400 MG CAPSULE PO SCH ×2 (09:13→19:42)
[2018-03-07] MEDS: URSODIOL 300 MG CAPSULE PO SCH ×3 (09:13→15:58)
[2018-03-07] MEDS: SENNA/DOCUSATE TABLET PO SCH (09:13)
[2018-03-07] MEDS: CHOLECALCIFEROL 5,000u TAB PO SCH (09:14)
[2018-03-07] MEDS: METOPROLOL TARTRATE 25 MG TABLET PO SCH ×2 (09:14→19:42)
[2018-03-07] MEDS: CEFDINIR 300 MG CAPSULE PO SCH ×2 (11:32→23:23)
[2018-03-07 15:01] VITALS: BP 116/68
[2018-03-07] MEDS: ENOXAPARIN 40 MG/0.4 ML SQ SCH (15:58)
[2018-03-07] MEDS: PANTOPROZOLE 40MG TABLET PO SCH (19:39)
[2018-03-07] MEDS: SIMVASTATIN 5 MG TABLET PO SCH (19:41)
[2018-03-07] MEDS: ACETAMINOPHEN 325 MG TABLET PO PRN ×2 (19:42→23:48)
[2018-03-07] MEDS: morphine SULFATE 10 MG/ML, 1ML IVPush PRN (19:43)
[2018-03-07 20:10] VITALS: BP 94/55
[2018-03-08 02:29] VITALS: BP 115/69
[2018-03-08] MEDS: ALBUTEROL/IPRATROPIUM 2.5MG/0.5MG, 3 ML NPPB SCH ×4 (03:00→20:53)
[2018-03-08 07:46] VITALS: BP 95/56
[2018-03-08] MEDS: ASCORBIC ACID 500 MG TABLET PO SCH (10:18)
[2018-03-08] MEDS: LEVETIRACETAM 500 MG TABLET PO SCH ×2 (10:18→21:08)
[2018-03-08] MEDS: MAGNESIUM CHLORIDE 64 MG TABLET.DR PO SCH ×2 (10:18→21:08)
[2018-03-08] MEDS: CEFDINIR 300 MG CAPSULE PO SCH (10:19)
[2018-03-08] MEDS: GABAPENTIN 400 MG CAPSULE PO SCH ×2 (10:19→21:08)
[2018-03-08] MEDS: URSODIOL 300 MG CAPSULE PO SCH ×3 (10:19→18:31)
[2018-03-08] MEDS: SENNA/DOCUSATE TABLET PO SCH (10:20)
[2018-03-08] MEDS: CHOLECALCIFEROL 5,000u TAB PO SCH (10:24)
[2018-03-08 10:25] VITALS: BP 94/56
[2018-03-08] MEDS: METOPROLOL TARTRATE 25 MG TABLET PO SCH ×2 (10:37→21:22)
[2018-03-08] MEDS ORDERED: CEFD300C37 PO (11:29)
[2018-03-08] MEDS: HYDROcodone/APAP 5/325 TABLET PO PRN (14:14)
[2018-03-08 14:19] VITALS: BP 106/65
[2018-03-08] MEDS: ENOXAPARIN 40 MG/0.4 ML SQ SCH ×2 (18:31→18:32)
[2018-03-08 19:48] VITALS: BP 99/62
[2018-03-08] MEDS: PANTOPROZOLE 40MG TABLET PO SCH (21:08)
[2018-03-08] MEDS: SIMVASTATIN 5 MG TABLET PO SCH (21:08)
[2018-03-08] MEDS: ACETAMINOPHEN 325 MG TABLET PO PRN (22:07)
[2018-03-09] MEDS: CEFDINIR 300 MG CAPSULE PO SCH ×2 (00:01→11:17)
[2018-03-09 00:24] VITALS: BP 110/67
[2018-03-09] MEDS: ALBUTEROL/IPRATROPIUM 2.5MG/0.5MG, 3 ML NPPB SCH ×2 (02:51→08:45)
[2018-03-09 07:35] VITALS: BP 103/65
[2018-03-09] MEDS: SENNA/DOCUSATE TABLET PO SCH (09:00)
[2018-03-09] MEDS: MAGNESIUM CHLORIDE 64 MG TABLET.DR PO SCH (09:00)
[2018-03-09] MEDS: ASCORBIC ACID 500 MG TABLET PO SCH (09:00)
[2018-03-09] MEDS: LEVETIRACETAM 500 MG TABLET PO SCH (11:13)
[2018-03-09] MEDS: GABAPENTIN 400 MG CAPSULE PO SCH (11:14)
[2018-03-09] MEDS: URSODIOL 300 MG CAPSULE PO SCH ×2 (11:15→12:00)
[2018-03-09] MEDS: METOPROLOL TARTRATE 25 MG TABLET PO SCH (11:18)
[2018-03-09] MEDS: CHOLECALCIFEROL 5,000u TAB PO SCH (11:19)
[2018-03-09] MEDS: HYDROcodone/APAP 5/325 TABLET PO PRN (13:02)
[2018-03-09 13:59] VITALS: BP 106/64
== END 2018-03-09 14:05 | DRG 535 ==
LOC: ED 03:08 → EDIP 03:21 → 4NOR 04:54
PROVIDERS: ADMIT Internal Medicine; ATTEND Internal Medicine
DX: S32.411A Displaced fracture of anterior wall of right acetabulum, initial encounter for closed fracture (principal); G93.41 Metabolic encephalopathy; M97.01XA Periprosthetic fracture around internal prosthetic right hip joint, initial encounter; S32.591A Other specified fracture of right pubis, initial encounter for closed fracture; N39.0 Urinary tract infection, site not specified; E44.0 Moderate protein-calorie malnutrition; I50.32 Chronic diastolic (congestive) heart failure; J96.10 Chronic respiratory failure, unspecified whether with hypoxia or hypercapnia; D63.8 Anemia in other chronic diseases classified elsewhere; E78.5 Hyperlipidemia, unspecified; R53.81 Other malaise; F32.9 Major depressive disorder, single episode, unspecified; I11.0 Hypertensive heart disease with heart failure; Z96.641 Presence of right artificial hip joint; M54.9 Dorsalgia, unspecified; D64.9 Anemia, unspecified; G89.29 Other chronic pain; I25.10 Atherosclerotic heart disease of native coronary artery without angina pectoris; J44.9 Chronic obstructive pulmonary disease, unspecified; K21.9 Gastro-esophageal reflux disease without esophagitis; W01.0XXA Fall on same level from slipping, tripping and stumbling without subsequent striking against object, initial encounter; Z90.49 Acquired absence of other specified parts of digestive tract; I25.2 Old myocardial infarction; Z95.5 Presence of coronary angioplasty implant and graft; Z90.710 Acquired absence of both cervix and uterus; Z95.1 Presence of aortocoronary bypass graft; Z79.899 Other long term (current) drug therapy; Z88.1 Allergy status to other antibiotic agents; Z98.49 Cataract extraction status, unspecified eye; Z99.81 Dependence on supplemental oxygen; Z86.711 Personal history of pulmonary embolism; Z68.32 Body mass index [BMI] 32.0-32.9, adult; Y93.89 Activity, other specified; Y92.89 Other specified places as the place of occurrence of the external cause
CPT/HCPCS: 36415; 80048; 80053; 80061; 81001; 82306; 82607; 83036; 83735; 84100; 84439; 84443; 85025; 87040; 87077; 87086; 87186; 92950; 94640; 99285; G0378; J0696; J1650; J7620; J2270; J3475; J7030

== ENCOUNTER 2018-03-30 11:20 | Observation (INO) | payer MEDICARE ==
[~2018-03-30] VITALS: Ht 144.8 cm; Wt 73.8 kg
[~2018-03-30 11:20] MED LIST changes: +CEFD300C37 PO; +LEVE250T28 PO; +SIMV5TAB5 PO
[2018-03-30] MEDS ORDERED: FENTANYL PF 100 MCG/2ML ONE (14:10)
[2018-03-30] MEDS ORDERED: ETOMIDATE 20 MG/10 ML ONE (14:10)
[2018-03-30] MEDS ORDERED: ICN FENTANYL 4MCG/ML IV IVPush ONE (16:00)
[2018-03-30] MEDS ORDERED: ETOMIDATE 20 MG/10 ML IVPush ONE (16:00)
[2018-03-30] MEDS ORDERED: FENTANYL PF 100 MCG/2ML IVPush ONE ×2 (16:00)
[2018-03-30] MEDS ORDERED: POLYETHYLENE GLYCOL 17 GM PACKET PO PRN (18:00)
[2018-03-30] MEDS ORDERED: MORPHINE SULFATE 4 MG/ML, 1ML IVPush PRN (18:00)
[2018-03-30] MEDS ORDERED: ACETAMINOPHEN 325 MG TABLET PO PRN (18:00)
[2018-03-30] MEDS ORDERED: DOCUSATE 100 MG CAPSULE PO PRN (18:00)
[2018-03-30] MEDS ORDERED: ONDANSETRON 2MG/ML, 2ML IVPush PRN (18:00)
[2018-03-30 18:20] VITALS: BP 126/78
[2018-03-30] MEDS ORDERED: NS + 20MEQ KCL 1,000 ML IV SCH (18:20)
[2018-03-30] MEDS: URSODIOL 300 MG CAPSULE PO SCH (18:32)
[2018-03-30] MEDS: HEPARIN 5,000 UNITS/ML, 1ML SQ SCH (18:32)
[2018-03-30 19:43] VITALS: BP 124/73
[2018-03-30] MEDS: FAMOTIDINE 20 MG TABLET PO SCH (21:31)
[2018-03-30] MEDS: GABAPENTIN 400 MG CAPSULE PO SCH (21:31)
[2018-03-30] MEDS: LEVETIRACETAM 500 MG TABLET PO SCH (21:32)
[2018-03-30] MEDS: SIMVASTATIN 5 MG TABLET PO SCH (21:32)
[2018-03-30] MEDS: METOPROLOL TARTRATE 25 MG TABLET PO SCH (21:33)
[2018-03-31 02:17] VITALS: BP 118/69
[2018-03-31] MEDS: HEPARIN 5,000 UNITS/ML, 1ML SQ SCH ×3 (02:20→16:58)
[2018-03-31 07:43] VITALS: BP 113/66
[2018-03-31] MEDS: CHOLECALCIFEROL 5,000u TAB PO SCH (07:44)
[2018-03-31] MEDS: GABAPENTIN 400 MG CAPSULE PO SCH ×2 (07:44→20:51)
[2018-03-31] MEDS: ASCORBIC ACID 500 MG TABLET PO SCH (07:44)
[2018-03-31] MEDS: URSODIOL 300 MG CAPSULE PO SCH ×3 (07:44→16:57)
[2018-03-31] MEDS: SENNA/DOCUSATE TABLET PO SCH (07:44)
[2018-03-31] MEDS: FAMOTIDINE 20 MG TABLET PO SCH ×2 (07:46→20:52)
[2018-03-31] MEDS: LEVETIRACETAM 500 MG TABLET PO SCH ×2 (07:46→20:52)
[2018-03-31] MEDS: METOPROLOL TARTRATE 25 MG TABLET PO SCH ×2 (07:48→20:52)
[2018-03-31] MEDS: IPRATROPIUM 0.5 MG/2.5 ML INHA NPPB SCH ×2 (10:00→18:55)
[2018-03-31] MEDS ORDERED: IPRATROPIUM 0.5 MG/2.5 ML INHA ONE (10:00)
[2018-03-31 13:46] VITALS: BP 105/52
[2018-03-31 20:34] VITALS: BP 99/63
[2018-03-31] MEDS: SIMVASTATIN 5 MG TABLET PO SCH (20:52)
[2018-04-01] MEDS: IPRATROPIUM 0.5 MG/2.5 ML INHA NPPB SCH ×3 (00:16→14:35)
[2018-04-01 00:45] VITALS: BP 110/72
[2018-04-01] MEDS: HEPARIN 5,000 UNITS/ML, 1ML SQ SCH ×2 (02:20→11:00)
[2018-04-01 07:40] VITALS: BP 101/65
[2018-04-01] MEDS: FAMOTIDINE 20 MG TABLET PO SCH (08:41)
[2018-04-01] MEDS: GABAPENTIN 400 MG CAPSULE PO SCH (08:42)
[2018-04-01] MEDS: CHOLECALCIFEROL 5,000u TAB PO SCH (08:42)
[2018-04-01] MEDS: SENNA/DOCUSATE TABLET PO SCH (08:42)
[2018-04-01] MEDS: URSODIOL 300 MG CAPSULE PO SCH ×3 (08:43→16:58)
[2018-04-01] MEDS: METOPROLOL TARTRATE 25 MG TABLET PO SCH (08:44)
[2018-04-01] MEDS: ASCORBIC ACID 500 MG TABLET PO SCH (08:45)
[2018-04-01] MEDS: LEVETIRACETAM 500 MG TABLET PO SCH (08:45)
[2018-04-01 12:39] VITALS: BP 104/60
[2018-04-01] MEDS: HYDROcodone/APAP 5/325 TABLET PO PRN ×2 (13:47→17:52)
[2018-04-01] MEDS ORDERED: HYDR-3240 PO (13:59)
[2018-04-01 17:14] VITALS: BP 105/69
== END 2018-04-01 18:20 ==
LOC: ED 14:41 → SUATTDRO 17:11 → EDIP 17:31 → INTOOBSV 17:31 → 4NOR 18:12
PROVIDERS: ADMIT Family Medicine; ATTEND Family Medicine
DX: T84.020A Dislocation of internal right hip prosthesis, initial encounter (principal); S72.001A Fracture of unspecified part of neck of right femur, initial encounter for closed fracture; S32.591A Other specified fracture of right pubis, initial encounter for closed fracture; I50.32 Chronic diastolic (congestive) heart failure; E44.0 Moderate protein-calorie malnutrition; D63.8 Anemia in other chronic diseases classified elsewhere; E78.5 Hyperlipidemia, unspecified; F32.9 Major depressive disorder, single episode, unspecified; I11.0 Hypertensive heart disease with heart failure; I25.10 Atherosclerotic heart disease of native coronary artery without angina pectoris; I25.2 Old myocardial infarction; J44.9 Chronic obstructive pulmonary disease, unspecified; K21.9 Gastro-esophageal reflux disease without esophagitis; M85.80 Other specified disorders of bone density and structure, unspecified site; M97.01XA Periprosthetic fracture around internal prosthetic right hip joint, initial encounter; Z86.711 Personal history of pulmonary embolism; Z82.5 Family history of asthma and other chronic lower respiratory diseases; Z90.710 Acquired absence of both cervix and uterus; Z95.5 Presence of coronary angioplasty implant and graft; G62.9 Polyneuropathy, unspecified; G89.29 Other chronic pain; Z68.35 Body mass index [BMI] 35.0-35.9, adult; Z88.1 Allergy status to other antibiotic agents; Y93.89 Activity, other specified; Y99.8 Other external cause status; Y92.89 Other specified places as the place of occurrence of the external cause; Y79.2 Prosthetic and other implants, materials and accessory orthopedic devices associated with adverse incidents; X58.XXXA Exposure to other specified factors, initial encounter
CPT/HCPCS: 27265; 73501; 73502; 73700; 94640; 96372; 96374; 96375; 97162; 97167; 97530; 99152; 99285; G0378; J1644; J3480; J7644